=== PATIENT | male | born 1950 | race Caucasian/White ===

== ENCOUNTER → 2018-08-07 10:16 | Outpatient (CLI) | payer MEDICARE, SELFPAY ==
[2018-08-07 12:37] LABS: Absolute Lymphocyte Count 1.44 X10^3/ul (0.83-4.51); Absolute Neutrophil Count 2.7 X10^3/uL (2.0-7.7); Basophil# 0.05 X10^3/uL; Eosinophil# 0.26 X10^3/uL; Eosinophils% 5.1 % (0-5); Hematocrit 39.2 % (40-54); Hemoglobin 12.6 g/dl (13.0-16.5); Lymphocyte # 1.44 X10^3/ul (4.0); Lymphocyte % 28.1 % (19-41); Mean Corp Hgb Conc 32.1 g/gl (32-36); Mean Corpuscular Hgb 30.8 pg (27.0-32.0); Mean Corpuscular Volume 95.8 fL (80-94); Mean Platelet Vol. 10.5 fl (6.2-12.0); Monocyte# 0.63 X10^3/uL; Monocyte% 12.3 % (0-10); Neutrophil # 2.74 X10^3/uL (2.7-7.7); Neutrophil % 53.3 % (47-70); Platelet Count 299 K/mm3 (150-450); RBC Distribution Width CV 13.7 % (11.6-14.6); RBC Distribution Width SD 47.8 fl (35.1-43.9); Red Blood Count 4.09 M/mm3 (4.6-6.2); White Blood Count 5.1 K/mm3 (4.4-11.0)
[2018-08-07 12:38] LABS: POSITIVE COUNT NO; POSITIVE DIFFERENTIAL NO; POSITIVE MORPHOLOGY NO
[2018-08-07 12:56] LABS: ALB/GLOB Ratio 0.9 RATIO (0.9-2.4); AST(SGOT) 22 U/L (15-37); Alanine Aminotransfer ALT/SGPT 26 U/L (16-61); Albumin, Serum 3.6 g/dL (3.2-5.0); Alkaline Phosphatase 84 U/L (45-117); Anion Gap 6 (5-15); BUN 15 mg/dL (7-18); BUN/Creat Ratio 11.6 RATIO (10-20); Calcium,Total 9.3 mg/dL (8.5-10.1); Chloride 104 mmol/L (98-107); Cholesterol 187 mg/dL (200); Creatinine, Serum 1.29 mg/dL (0.70-1.30); EST Glomerular Filtration Rate 59 mL/min (>60); Est Glom Filt Rate - Afr Amer 71 mL/min (>60); Globulin 3.8 g/dL (2.2-4.2); Glucose 89 mg/dL (74-106); High Density Lipoprotein 91 mg/dL; PSA,Total - Annual Screen 0.29 ng/mL (0.00-4.00); Potassium 5.1 mmol/L (3.5-5.1); Protein, Total 7.4 g/dL (6.4-8.2); Sodium Level 139 mmol/L (136-145); Thyroid Stim Hormone (TSH) 1.86 uIU/mL (0.358-3.74); Triglycerides 68 mg/dL; Very Low Density Lipoprotein 14 mg/dL (5-40)
== END ==
PROVIDERS: Family Provider Internal Medicine; PCP Internal Medicine; Referring Provider Internal Medicine; Visit Provider Internal Medicine
DX: I10 Essential (primary) hypertension (principal); E78.5 Hyperlipidemia, unspecified; Z12.5 Encounter for screening for malignant neoplasm of prostate
CPT/HCPCS: 36415; 80053; 80061; 84153; 84443; 85025; G0103

== ENCOUNTER → 2019-01-31 08:37 | Outpatient (CLI) | payer MEDICARE, SELFPAY ==
[2019-01-31 10:39] LABS: ALB/GLOB Ratio 0.9 RATIO (0.9-2.4); AST(SGOT) 24 U/L (15-37); Alanine Aminotransfer ALT/SGPT 44 U/L (16-61); Albumin, Serum 3.7 g/dL (3.2-5.0); Alkaline Phosphatase 83 U/L (45-117); Anion Gap 4 (5-15); BUN 17 mg/dL (7-18); BUN/Creat Ratio 13.7 RATIO (10-20); Calcium,Total 8.9 mg/dL (8.5-10.1); Chloride 104 mmol/L (98-107); Cholesterol 213 mg/dL (200); Creatinine, Serum 1.24 mg/dL (0.70-1.30); EST Glomerular Filtration Rate 62 mL/min (>60); Est Glom Filt Rate - Afr Amer 75 mL/min (>60); Globulin 4.3 g/dL (2.2-4.2); Glucose 94 mg/dL (74-106); High Density Lipoprotein 79 mg/dL; Potassium 4.1 mmol/L (3.5-5.1); Sodium Level 139 mmol/L (136-145); Triglycerides 101 mg/dL; Very Low Density Lipoprotein 20 mg/dL (5-40)
[2019-01-31 10:41] LABS: Absolute Lymphocyte Count 1.72 X10^3/uL (0.83-4.51); Absolute Neutrophil Count 3.3 X10^3/uL (2.0-7.7); Basophil# 0.07 X10^3/uL; Basophil% 1.1 % (0-1); Eosinophil# 0.46 X10^3/uL; Eosinophils% 7.3 % (0-5); Hematocrit 42.4 % (40-54); Hemoglobin 13.4 g/dL (13.0-16.5); Lymphocyte # 1.72 X10^3/ul (4.0); Lymphocyte % 27.5 % (19-41); Mean Corp Hgb Conc 31.6 g/dL (32-36); Mean Corpuscular Hgb 31.6 pg (27.0-32.0); Mean Platelet Vol. 10.6 fl (6.2-12.0); Monocyte# 0.69 X10^3/uL; NRBC Flagged by Analyzer 0 % (0-5); Neutrophil # 3.29 X10^3/uL (2.7-7.7); Neutrophil % 52.6 % (47-70); Platelet Count 287 K/mm3 (150-450); RBC Distribution Width CV 13.6 % (11.6-14.6); RBC Distribution Width SD 50.4 fl (35.1-43.9); Red Blood Count 4.24 M/mm3 (4.6-6.2); White Blood Count 6.3 K/mm3 (4.4-11.0)
== END ==
PROVIDERS: Family Provider Internal Medicine; PCP Internal Medicine; Referring Provider Internal Medicine; Visit Provider Internal Medicine
DX: I10 Essential (primary) hypertension (principal); E78.5 Hyperlipidemia, unspecified
CPT/HCPCS: 36415; 80053; 80061; 85025

== ENCOUNTER → 2019-08-04 09:51 | Outpatient (CLI) | payer MEDICARE, SELFPAY ==
[2019-08-04 12:26] LABS: ALB/GLOB Ratio 0.9 RATIO (0.9-2.4); AST(SGOT) 24 U/L (15-37); Alanine Aminotransfer ALT/SGPT 32 U/L (16-61); Albumin, Serum 3.6 g/dL (3.2-5.0); Alkaline Phosphatase 73 U/L (45-117); Anion Gap 3 (5-15); BUN 16 mg/dL (7-18); Calcium,Total 9.5 mg/dL (8.5-10.1); Chloride 104 mmol/L (98-107); Cholesterol 192 mg/dL (200); Creatinine, Serum 1.33 mg/dL (0.70-1.30); EST Glomerular Filtration Rate 57 mL/min (>60); Est Glom Filt Rate - Afr Amer 69 mL/min (>60); Globulin 4.2 g/dL (2.2-4.2); Glucose 75 mg/dL (74-106); High Density Lipoprotein 70 mg/dL; Potassium 4.3 mmol/L (3.5-5.1); Protein, Total 7.8 g/dL (6.4-8.2); Sodium Level 137 mmol/L (136-145); Thyroid Stim Hormone (TSH) 0.78 uIU/mL (0.358-3.74); Triglycerides 121 mg/dL; Very Low Density Lipoprotein 24 mg/dL (5-40)
== END ==
PROVIDERS: PCP Internal Medicine; Referring Provider Internal Medicine; Visit Provider Internal Medicine
DX: M25.552 Pain in left hip (principal); I10 Essential (primary) hypertension; E78.5 Hyperlipidemia, unspecified; Z13.31 Encounter for screening for depression; Z23 Encounter for immunization
CPT/HCPCS: 36415; 80053; 80061; 84443

== ENCOUNTER → 2020-06-04 11:14 | Outpatient (CLI) | payer MEDICARE, SELFPAY ==
[2020-06-04 15:14] LABS: Absolute Lymphocyte Count 1.18 X10^3/uL (0.83-4.51); Absolute Neutrophil Count 4.2 X10^3/uL (2.0-7.7); Basophil# 0.05 X10^3/uL; Basophil% 0.8 % (0-1); Eosinophil# 0.38 X10^3/uL; Eosinophils% 5.9 % (0-5); Hematocrit 40.5 % (40-54); Hemoglobin 12.3 g/dL (13.0-16.5); Lymphocyte # 1.18 X10^3/ul (4.0); Lymphocyte % 18.2 % (19-41); Mean Corp Hgb Conc 30.4 g/dL (32-36); Mean Corpuscular Hgb 30.7 pg (27.0-32.0); Mean Platelet Vol. 10.5 fl (6.2-12.0); Monocyte# 0.65 X10^3/uL; NRBC Flagged by Analyzer 0 % (0-5); Neutrophil # 4.21 X10^3/uL (2.7-7.7); Neutrophil % 64.8 % (47-70); Platelet Count 303 K/mm3 (150-450); RBC Distribution Width CV 13.4 % (11.6-14.6); Red Blood Count 4.01 M/mm3 (4.6-6.2); White Blood Count 6.5 K/mm3 (4.4-11.0)
[2020-06-04 15:54] LABS: ALB/GLOB Ratio 0.8 RATIO (0.9-2.4); AST(SGOT) 20 U/L (15-37); Alanine Aminotransfer ALT/SGPT 31 U/L (16-61); Albumin, Serum 3.6 g/dL (3.2-5.0); Alkaline Phosphatase 73 U/L (45-117); Anion Gap 5 (5-15); BUN 14 mg/dL (7-18); CPK Total, Creatine Kinase 63 U/L (39-308); Calcium,Total 9.3 mg/dL (8.5-10.1); Chloride 105 mmol/L (98-107); Cholesterol 187 mg/dL (200); Creatinine, Serum 1.56 mg/dL (0.70-1.30); EST Glomerular Filtration Rate 47 mL/min (>60); Est Glom Filt Rate - Afr Amer 57 mL/min (>60); Globulin 4.4 g/dL (2.2-4.2); Glucose 86 mg/dL (74-106); High Density Lipoprotein 83 mg/dL; PSA,Total - Annual Screen 0.33 ng/mL (0.00-4.00); Potassium 4.1 mmol/L (3.5-5.1); Sodium Level 138 mmol/L (136-145); Thyroid Stim Hormone (TSH) 1.32 uIU/mL (0.358-3.74); Triglycerides 79 mg/dL; Very Low Density Lipoprotein 16 mg/dL (5-40)
== END ==
PROVIDERS: PCP Internal Medicine; Referring Provider Internal Medicine; Visit Provider Internal Medicine
DX: R79.89 Other specified abnormal findings of blood chemistry (principal); I10 Essential (primary) hypertension; E78.5 Hyperlipidemia, unspecified; Z12.5 Encounter for screening for malignant neoplasm of prostate
CPT/HCPCS: 36415; 80053; 80061; 82550; 84153; 84443; 85025; G0103

== ENCOUNTER → 2020-07-22 14:42 | Outpatient (CLI) | payer MEDICARE, SELFPAY ==
[2020-07-22 17:48] LABS: Absolute Lymphocyte Count 1.88 X10^3/uL (0.83-4.51); Basophil# 0.08 X10^3/uL; Eosinophils% 3.7 % (0-5); Hematocrit 39.6 % (40-54); Hemoglobin 12.9 g/dL (13.0-16.5); Lymphocyte # 1.88 X10^3/ul (4.0); Lymphocyte % 23.2 % (19-41); Mean Corp Hgb Conc 32.6 g/dL (32-36); Mean Corpuscular Hgb 32.2 pg (27.0-32.0); Mean Corpuscular Volume 98.8 fL (80-94); Mean Platelet Vol. 10.4 fl (6.2-12.0); Monocyte# 0.83 X10^3/uL; Monocyte% 10.3 % (0-10); NRBC Flagged by Analyzer 0 % (0-5); Neutrophil # 4.96 X10^3/uL (2.7-7.7); Neutrophil % 61.3 % (47-70); Platelet Count 322 K/mm3 (150-450); RBC Distribution Width CV 13.5 % (11.6-14.6); RBC Distribution Width SD 48.6 fl (35.1-43.9); Red Blood Count 4.01 M/mm3 (4.6-6.2); Reticulocyte Count 1.21 % (0.5-1.5); White Blood Count 8.1 K/mm3 (4.4-11.0)
[2020-07-22 18:23] LABS: Vitamin B12 509 pg/mL (211-911)
[2020-07-22 18:43] LABS: Anion Gap 6 (5-15); BUN 27 mg/dL (7-18); BUN/Creat Ratio 13.9 RATIO (10-20); Calcium,Total 9.5 mg/dL (8.5-10.1); Chloride 101 mmol/L (98-107); Creatinine, Serum 1.94 mg/dL (0.70-1.30); EST Glomerular Filtration Rate 37 mL/min (>60); Est Glom Filt Rate - Afr Amer 44 mL/min (>60); Ferritin 256 ng/mL (26-388); Glucose 79 mg/dL (74-106); Iron 113 ug/dL (65-175); Iron Binding Capacity,Total 305 ug/dL (250-450); Potassium 5.2 mmol/L (3.5-5.1); Sodium Level 134 mmol/L (136-145)
== END ==
PROVIDERS: PCP Internal Medicine; Referring Provider Internal Medicine; Visit Provider Internal Medicine
DX: N18.30 Chronic kidney disease, stage 3 unspecified (principal); D64.9 Anemia, unspecified
CPT/HCPCS: 80048; 82607; 82728; 82746; 83540; 83550; 85025; 85045

== ENCOUNTER → 2020-09-02 12:18 | Outpatient (CLI) | payer MEDICARE, SELFPAY ==
--- NOTE | 2020-09-02 12:29 | US_ITS ---
STUDY: RENAL ULTRASOUND - COMPLETE REASON FOR EXAM: Male, 70 years old. Elevated BUN/creatinine TECHNIQUE: Ultrasound evaluation of the kidneys was performed with real-time and static schuster-scale imaging. COMPARISON: None. FINDINGS: RIGHT KIDNEY: Normal location of the right kidney, which is normal in size. The right kidney measures 10.1 x 4.6 x 4.8 cm. There is a normal cortex of the right kidney. The renal cortex measures 1.5 cm. There is a simple 1.9 cm cyst. There are no right renal calculi. There is no right hydronephrosis. DISTAL RIGHT URETER: There is non-visualization of the distal right ureter. There is no demonstrated right ureterovesical junction calculus. There is a visualized right ureteral jet. LEFT KIDNEY: Normal location of the left kidney, which is normal in size. The left kidney measures 10.3 x 4.6 x 5.2 cm. There is a normal cortex of the left kidney. The renal cortex measures 1.3 cm. There is no left renal mass or cyst. There are no left renal calculi. There is no left hydronephrosis. DISTAL LEFT URETER: There is non-visualization of the distal left ureter. There is no demonstrated left ureterovesical junction calculus. There is a visualized left ureteral jet. AORTA: There is no elongation or tortuosity of the abdominal aorta. I.V.C.: The IVC is patent. BLADDER: The bladder is sonographically normal US/Kidney and Bladder IMPRESSION: No suspicious sonographic findings, simple right renal cyst, no specific follow-up needed Electronically Signed: Justo Meyers MD at 13:22 EDT , Service support ,
== END ==
PROVIDERS: PCP Internal Medicine; Referring Provider Student in an Organized Health Care Education/Training Program; Visit Provider Student in an Organized Health Care Education/Training Program
DX: I12.9 Hypertensive chronic kidney disease with stage 1 through stage 4 chronic kidney disease, or unspecified chronic kidney disease (principal); N18.32 Chronic kidney disease, stage 3b; D63.1 Anemia in chronic kidney disease; E83.39 Other disorders of phosphorus metabolism
CPT/HCPCS: 36415; 76770; 80048; 81002; 82306; 82570; 82728; 83540; 83550; 83970; 84156; 84550; 85027

== ENCOUNTER → 2020-09-02 13:29 | Outpatient (CLI) | payer MEDICARE, SELFPAY ==
[2020-09-02 15:02] LABS: Hematocrit 36.1 % (40-54); Hemoglobin 11.6 g/dL (13.0-16.5); Mean Corp Hgb Conc 32.1 g/dL (32-36); Mean Corpuscular Hgb 31.2 pg (27.0-32.0); Mean Platelet Vol. 10.3 fl (6.2-12.0); Platelet Count 307 K/mm3 (150-450); RBC Distribution Width CV 13.3 % (11.6-14.6); RBC Distribution Width SD 47.8 fl (35.1-43.9); Red Blood Count 3.72 M/mm3 (4.6-6.2); White Blood Count 6.7 K/mm3 (4.4-11.0)
[2020-09-02 15:08] LABS: Color, Urine Yellow (Yellow); Glucose, Dipstick Normal (Normal); Ketone-Dipstick Negative (Negative); Leukocyte Esterase-Dipstick Negative /ul (Negative); Nitrite-Dipstick Negative (Negative); Occult Blood-Urine Negative /ul (Negative); Protein-Dipstick Negative (Negative); Urine Bilirubin Dipstick Negative (Negative); Urine Clarity Clear (Clear); Urine Urobilinogen Normal (Normal); Urine pH 6.5 (5.0 - 8.0)
[2020-09-02 15:25] LABS: PTHIN 79.4 pg/mL (18.4-80.1)
[2020-09-02 15:26] LABS: Vitamin D,25 Hydroxy 21.5 ng/mL
[2020-09-02 15:36] LABS: Anion Gap 7 (5-15); BUN 16 mg/dL (7-18); BUN/Creat Ratio 10.8 RATIO (10-20); Calcium,Total 8.8 mg/dL (8.5-10.1); Chloride 103 mmol/L (98-107); Creatinine, Serum 1.48 mg/dL (0.70-1.30); EST Glomerular Filtration Rate 50 mL/min (>60); Est Glom Filt Rate - Afr Amer 61 mL/min (>60); Ferritin 203 ng/mL (26-388); Glucose 95 mg/dL (74-106); Iron 79 ug/dL (65-175); Iron Binding Capacity,Total 271 ug/dL (250-450); Potassium 4.6 mmol/L (3.5-5.1); Sodium Level 133 mmol/L (136-145); Uric Acid 3.9 mg/dL (3.5-7.2)
[2020-09-02 16:06] LABS: Protein, Urine (Random) < 6.0 mg/dL (<11.9)
== END ==
PROVIDERS: PCP Internal Medicine; Visit Provider Student in an Organized Health Care Education/Training Program
DX: I12.9 Hypertensive chronic kidney disease with stage 1 through stage 4 chronic kidney disease, or unspecified chronic kidney disease (principal); N18.32 Chronic kidney disease, stage 3b; D63.1 Anemia in chronic kidney disease; E83.39 Other disorders of phosphorus metabolism
CPT/HCPCS: 36415; 80048; 81002; 82306; 82570; 82728; 83540; 83550; 83970; 84156; 84550; 85027

== ENCOUNTER → 2020-10-04 14:01 | Outpatient (CLI) | payer MEDICARE, SELFPAY ==
--- NOTE | 2020-10-04 15:01 | RAD_ITS ---
STUDY: X-RAY - CERVICAL SPINE REASON FOR EXAM: Male, 70 years old. Neck pain and headache TECHNIQUE: 4 view(s) of the cervical spine were obtained. COMPARISON: None FINDINGS: Normal anterior atlantoaxial articulation. Normal odontoid process. There is straightening of the normal cervical lordosis. There is multi-level endplate spondylosis. There is multi-level degenerative disc disease with multilevel disc space narrowing. The soft tissue structures are unremarkable. There is no demonstrated fracture of the cervical spine. RAD/Cerv Spine 2 or 3 Views IMPRESSION: Multilevel degenerative changes, no acute findings Electronically Signed: Justo Meyers MD at 16:44 EDT , Service support ,
== END ==
LOC: RAD.FUTURE 14:03 → MTRAD 14:58
PROVIDERS: PCP Internal Medicine; Referring Provider Orthopaedic Surgery; Visit Provider Orthopaedic Surgery
DX: M54.2 Cervicalgia (principal)
CPT/HCPCS: 72040

== ENCOUNTER → 2021-08-02 | Outpatient (CLI) | payer MEDICARE, SELFPAY ==
[2021-08-02 15:10] LABS: Hematocrit 37.3 % (40-54); Hemoglobin 11.7 g/dL (13.0-16.5); Mean Corp Hgb Conc 31.4 g/dL (32-36); Mean Corpuscular Hgb 30.5 pg (27.0-32.0); Mean Corpuscular Volume 97.1 fL (80-94); Mean Platelet Vol. 10.7 fl (6.2-12.0); Platelet Count 361 K/mm3 (150-450); RBC Distribution Width CV 12.9 % (11.6-14.6); RBC Distribution Width SD 46.2 fl (35.1-43.9); Red Blood Count 3.84 M/mm3 (4.6-6.2); White Blood Count 8.5 K/mm3 (4.4-11.0)
[2021-08-02 15:34] LABS: Vitamin D,25 Hydroxy 16.8 ng/mL
[2021-08-02 15:54] LABS: ALB/GLOB Ratio 0.8 RATIO (0.9-2.4); AST(SGOT) 19 U/L (15-37); Alanine Aminotransfer ALT/SGPT 34 U/L (16-61); Albumin, Serum 3.5 g/dL (3.2-5.0); Alkaline Phosphatase 74 U/L (45-117); Anion Gap 8 (5-15); BUN 18 mg/dL (7-18); Calcium,Total 9.2 mg/dL (8.5-10.1); Chloride 108 mmol/L (98-107); Cholesterol 169 mg/dL (200); Creatinine, Serum 1.64 mg/dL (0.70-1.30); EST Glomerular Filtration Rate 44 mL/min (>60); Est Glom Filt Rate - Afr Amer 54 mL/min (>60); Globulin 4.4 g/dL (2.2-4.2); Glucose 92 mg/dL (74-106); High Density Lipoprotein 55 mg/dL; PSA,Total - Annual Screen 0.37 ng/mL (0.00-4.00); Potassium 4.2 mmol/L (3.5-5.1); Protein, Total 7.9 g/dL (6.4-8.2); Sodium Level 140 mmol/L (136-145); Thyroid Stim Hormone (TSH) 0.79 uIU/mL (0.358-3.74); Triglycerides 152 mg/dL; Very Low Density Lipoprotein 30 mg/dL (5-40)
== END | disposition home or self-care (01) ==
PROVIDERS: PCP Internal Medicine; Referring Provider Internal Medicine; Visit Provider Internal Medicine
DX: E55.9 Vitamin D deficiency, unspecified (principal); N18.31 Chronic kidney disease, stage 3a; I12.9 Hypertensive chronic kidney disease with stage 1 through stage 4 chronic kidney disease, or unspecified chronic kidney disease; E78.5 Hyperlipidemia, unspecified; Z12.5 Encounter for screening for malignant neoplasm of prostate
CPT/HCPCS: 36415; 80053; 80061; 82306; 84153; 84443; 85027; G0103

== ENCOUNTER → 2023-11-20 | Outpatient (CLI) | payer MEDICARE, SELFPAY ==
--- NOTE | 2023-11-20 10:23 | RAD_ITS ---
STUDY: X-RAY - UNILATERAL RIBS ( RIGHT ) WITH CHEST REASON FOR EXAM: Male, 73 years old. CONTUSION POST FALL TECHNIQUE - RIBS: 4 view(s) of the ribs. TECHNIQUE - CHEST: Single PA view of the chest. COMPARISON: None. FINDINGS - RIBS: Nondisplaced fractures involving the anterior lateral aspects of the right eighth ninth and 10th ribs anterolaterally. FINDINGS - CHEST: The lungs are clear and expanded. There is no demonstrated pleural abnormality. Normal size heart. Normal mediastinum and kimani. Normal visualized pulmonary arteries. There is atherosclerotic calcification of the aortic arch with tortuosity. There are diffuse degenerative changes of the visualized thoracic spine. There are nondisplaced fractures of the right eighth ninth and 10th ribs anterolaterally. Aortic stent is seen as well as stenting of the common iliac arteries bilaterally. RAD/Ribs Uni Min 3V w/PA Chest IMPRESSION: RIBS: Nondisplaced fractures of the right eighth ninth and 10th ribs anterolaterally. CHEST: Normal x-ray examination of the chest. Electronically Signed: Joel Duke MD at 11:27 EDT ,
== END | disposition home or self-care (01) ==
PROVIDERS: PCP Internal Medicine; Referring Provider Internal Medicine; Visit Provider Internal Medicine
DX: S20.219A Contusion of unspecified front wall of thorax, initial encounter (principal); Z91.81 History of falling
CPT/HCPCS: 71101

== ENCOUNTER → 2024-10-08 | Outpatient (CLI) | payer MEDICARE, SELFPAY ==
--- OUTSIDE RECORDS SUMMARY | 2024-10-08 05:46 | XMS RPT_ITS | CCD ---
Author Organization [facility] Care Team Providers Care Certification Officer Name Role Phone DR LIVIA KEYES MD Primary Care Physician [phone] WILFRED ALONSO MD Primary Care Unava ilable WILFRED ALONSO MD Attending Unava ilable LIVIA KEYES MD Consulting Unavailable WILFRED ALONSO MD Admitting Unava ilable PROVIDER, UNKNOWN Consulting Unavailable PROVIDER, UNKNOWN Consulting Unavailable PROVIDER, UNKNOWN Consulting Unavailable LIVIA KEYES MD Primary Care Unavailable LIVIA KEYES MD Consulting Unavailable LIVIA KEYES MD Attending Unavailable LIVIA KEYES MD Admitting Unavailable PROVIDER, UNKNOWN Consulting Unavailable PROVIDER, UNKNOWN Consulting Unavailable PROVIDER, UNKNOWN Consulting Unavailable LIVIA KEYES MD Consulting Unavailable LIVIA KEYES MD Attending Unavailable LIVIA KEYES MD Admitting Unavailable LIVIA KEYSE MD Primary Care Unavailable PROVIDER, UNKNOWN Consulting Unavailable PROVIDER, UNKNOWN Consulting Unavailable PROVIDER, UNKNOWN Consulting Unavailable LIVIA KEYES MD Primary Care Unavailable LIVIA KEYES MD Attending Unavailable LIVIA KEYES MD Admitting Unavailable LIVIA KEYES MD Consulting Unavailable PROVIDER, UNKNOWN Consulting Unavailable PROVIDER, UNKNOWN Consulting Unavailable PROVIDER, UNKNOWN Consulting Unavailable LIVIA KEYES MD Primary Care Unavailable LATLIVIA GOODMAN MD Consulting Unavailable LIVIA KEYES MD Attending Unavailable LIVIA KEYES MD Admitting Unavailable PROVIDER, UNKNOWN Consulting Unavailable PROVIDER, UNKNOWN Consulting Unavailable PROVIDER, UNKNOWN Consulting Unavailable LIVIA KEYES MD Consulting Unavailable LIVIA KEYES MD Attending Unavailable LATLIVIA GOODMAN MD Admitting Unavailable LIVIA KEYES MD Primary Care Unavailable PROVIDER, UNKNOWN Consulting Unavailable PROVIDER, UNKNOWN Consulting Unavailable PROVIDER, UNKNOWN Consulting Unavailable LIVIA KEYES MD Primary Care Unavailable LATLIVIA GOODMAN MD Consulting Unavailable LIVIA KEYES MD Attending Unavailable LIVIA KEYES MD Admitting Unavailable PROVIDER, UNKNOWN Consulting Unavailable PROVIDER, UNKNOWN Consulting Unavailable PROVIDER, UNKNOWN Consulting Unavailable Wali MONTESINOS, Dr. Wilkinson Primary Care Provider Dr. Livia Keyes MD Referring Provider Blanca Greenberg Attending Provider [phone] Livia Keyes Primary Care Unavailable Wali, Livia Referring Unavailable Blanca Valentin Attending Unavailable Livia Keyes Primary Care Unavailable Livia Keyes Attending Unavailable Wali, Livia Referring Unavailable Blanca Valentin Attending Unavailable Blanca Valentin Referring Unavailable Wali, Livia Primary Care Unavailable Medications Current Medications Medication Drug Class(es) Dates Sig (Normalized) Sig (Original) acetaminophen 325 mg / HYDROcodone bitartrate 5 mg oral tablet (2 sources) Opioid Agonist Start: 09-16-2024 Hydrocodone-Acetam inophen 5-325 mg tablet Active 1 {tbl} PO Q4H as needed September 16, 2024 12:00am Start: 11-16-2020 [place] 325- 5 m g oral tablet Dose = 1 tab(s), Oral, q4h, PRN Pain, scale 7-10, 0 Refill(s), 86.1 Start Date: 11/16/20 Status: Ordered aspirin 81 mg delayed release oral tablet (1 source) Platelet Aggregation Inhibitor, Nonsteroidal Anti-inflammatory Drug Start: 09-16-2024 take 1 tablet by mouth once daily Aspirin 81 mg tablet,delayed release (DR/EC) Active 81 mg PO daily September 16, 2024 12:00am cyclobenzaprine hydrochloride 10 mg oral tablet (1 source) Muscle Relaxant Start: 09-16-2024 take 1 tablet by mouth at bedtime Cyclobenzaprine 10 mg tablet Active 10 mg PO BEDTIME September 16, 2024 12:00am folic acid 1 mg oral tablet (1 source) Start: 09-16-2024 take 1 tablet by mouth every other day Folic Acid 1 mg tablet Active 1 mg PO .QOD September 16, 2024 12:00am gabapentin 800 mg oral tablet (2 sources) Anti-epileptic Agent Start: 09-16-2024 take 1 tablet by mouth three times daily Gabapentin (Neurontin) 800 mg tablet Active 800 mg PO THREE TIMES A DAY September 16, 2024 12:00am Start: 10-11-2020 gabapentin 800 mg oral tablet Dose : 800 mg = 1 tab(s), Oral, TID, 86.5 Start Date: 10/11/20 Status: Ordered lisinopril 10 mg oral tablet (1 source) Angiotensin Converting Enzyme Inhibitor Start: 10-11-2020 lisinopril 10 mg oral tablet Dose : 10 mg = 1 tab(s), Oral, qAM Start Date: 10/11/20 Status: Ordered 24 hr metoprolol succinate 25 mg extended release oral tablet (1 source) beta-Adrenergic Hiral Start: 09-16-2024 take 1 tablet by mouth once daily Metoprolol Succinate 25 mg tablet extended release 24 hr Active 25 mg PO daily September 16, 2024 12:00am pantoprazole 40 mg delayed release oral tablet (2 sources) Proton Pump Inhibitor Start: 09-16-2024 take 1 tablet by mouth once daily Pantoprazole (Protonix) 40 mg tablet,delayed release (DR/EC) Active 40 mg PO daily September 16, 2024 12:00am Start: 10-11-2020 pantoprazole 4 0 mg oral enteric coated tablet Dose : 40 mg = 1 tab(s), Oral, qAM Start Date: 10/11/20 Status: Ordered rosuvastatin calcium 40 mg oral tablet (2 sources) HMG-CoA Reductase Inhibitor Start: 09-16-2024 take 1 tablet by mouth once daily Rosuvastatin 40 mg tablet Active 40 mg PO daily September 16, 2024 12:00am Start: 10-11-2020 rosuvastatin 4 0 mg oral tablet Dose : 40 mg = 1 tab(s), Oral, qPM Start Date: 10/11/20 Status: Ordered sertraline 50 mg oral tablet (2 sources) Serotonin Reuptake Inhibitor Start: 09-16-2024 take 1 tablet by mouth once daily Sertraline 50 mg tablet Active 50 mg PO daily September 16, 2024 12:00am Start: 10-11-2020 sertraline 100 mg oral tablet Dose : 100 mg = 1 tab(s), Oral, qAM Start Date: 10/11/20 Status: Ordered ubidecarenone 200 mg oral capsule (1 source) Start: 09-16-2024 take 10 capsules by mouth once daily Coenzyme Q10 200 mg capsule Active 200 mg PO daily September 16, 2024 12:00am zolpidem tartrate 10 mg oral tablet (2 sources) gamma-Aminobuty brigitte Acid-ergic Agonist Start: 09-16-2024 take 1 tablet by mouth at bedtime as needed Zolpidem 10 mg tablet Active 10 mg PO AT BEDTIME as needed September 16, 2024 12:00am Start: 10-11-2020 zolpidem 10 mg oral tablet Dose : 10 mg = 1 tab(s), Oral, qHS, PRN as needed for sleep, 86.5 Start Date: 10/11/20 Status: Ordered Problems Active Problems Problem Classification Problem Date Documented Date Episodic/Chronic Chronic kidney disease (2 sources) Chronic kidney disease; Translations: [Chronic kidney disease, stage 3a] Onset: 01-07-2024 Deficiency and other anemia (2 sources) Folate deficiency anemia, unspecified; Translations: [Folate deficiency anemia, unspecified] Onset: 03-20-2024 Episodic Deficiency and other anemia (1 source) Anemia, unspecified; Translations: [Anemia, unspecified] Onset: 08-05-2024 Episodic Disorders of lipid metabolism (2 sources) Hypercholesterolemia; Translations: [Hyperlipidemia, unspecified] Onset: 08-05-2024 11-14-2013 Chronic Essential hypertension (1 source) Hypertensive disorder 11-14-2013 Chronic Nutritional deficiencies (1 source) Vitamin D deficiency, unspecified; Translations: [Vitamin D deficiency, unspecified] Onset: 08-05-2024 Chronic Other circulatory disease (2 sources) Disorder of carotid artery; Translations: [Disorder of arteries and arterioles, unspecified] 09-17-2024 Chronic Other circulatory disease (2 sources) Personal history of other diseases of the circulatory system; Translations: [Personal history of other diseases of the circulatory system] Onset: 09-17-2024 Episodic Other endocrine disorders (1 source) Secondary hyperparathyroidism, not elsewhere classified; Translations: [Secondary hyperparathyroidism, not elsewhere classified] Onset: 08-05-2024 Chronic Other screening for suspected conditions (not mental disorders or infectious disease) (1 source) Encounter for screening for malignant neoplasm of prostate; Translations: [Encounter for screening for malignant neoplasm of prostate] Onset: 08-04-2024 Episodic Residual codes; unclassified (2 sources) History of cardiovascular surgery; Translations: [Other specified postprocedural states] 09-17-2024 Episodic Residual codes; unclassified (2 sources) Other specified postprocedural states; Translations: [Other specified postprocedural states] Onset: 09-17-2024 Episodic Spondylosis; intervertebral disc disorders; other back problems (1 source) Prolapsed cervical intervertebral disc 10-26-2020 Chronic Spondylosis; intervertebral disc disorders; other back problems (1 source) Spinal stenosis in cervical region 10-22-2020 Episodic Past or Other Problems Problem Classification Problem Date Documented Da te Episodic/Chronic Other injuries and conditions due to external causes (1 source) History of falling; Translations: [History of falling] Onset: 12-24-2023 Episodic Results Test Name Value Interpretation Reference Range Facility MR/BMSLidia 09-17-2024 MR/BMS.BVS [facility] [address] [place] [address]. [address] [place] [address] OFFICE VISIT Date of Service: 09/17/24 MR#: [id number] Acct: [id number] Name: FRANCESSAVANAH D Rep #: [id number] : 1950 Provider: KELLY Houston Age/Sex: 74/M Location: [facility] [place] Status: Signed Intake Vital Signs 09/17/24 14:51 Height 5 ft 9 in Weight: 199 lb BMI 29.3 BP 135/66 H Blood Pressure Location Lt brachial Position Sitting Respiration 18 Pulse 74 Pulse Source Monitor Temp 98 F Temp Source Temporal Pulse Oximetry (%) 96 Oxygen Delivery Method room air Intake Visit Reasons: AAA Is patient in pain?: Yes Allergies No Known Allergies Allergy (Verified 09/17/24 14:45) Medications ???Medication ???Instructions ???Recorded ???Confirmed ???Type aspirin 81 mg tablet,delayed 81 mg PO QDAY 09/16/24 09/17/24 Hi story release coenzyme Q10 200 mg capsule 200 mg PO QDAY 09/16/24 09/17/24 H istory cyclobenzaprine 10 mg tablet 10 mg PO HS 09/16/24 09/17/24 Hist ory folic acid 1 mg tablet 1 mg PO .QOD 09/16/24 09/17/24 His tory gabapentin 800 mg tablet 800 mg PO TID 09/16/24 09/17/24 Hi story (Neurontin) hydrocodone-acetaminop hen 5-325mg 1 tab PO Q4H PRN 09/16/24 5 History 5mg-325mg metoprolol succinate 25 mg 25 mg PO QDAY 09/16/24 09/17/24 Hi story tablet,extended release 24 hr pantoprazole 40 mg tablet,delayed 40 mg PO QDAY 09/16/24 09/17/24 H istory release (Protonix) rosuvastatin 40 mg tablet 40 mg PO QDAY 09/16/24 09/17/24 Hi story sertraline 50 mg tablet 50 mg PO QDAY 09/16/24 09/17/24 Hi story zolpidem 10 mg tablet 10 mg PO QHS PRN 09/16/24 09/17/24 History Have you fallen in the past year?: Yes PFSH Medical History (Updated 09/17/24 @ 15:15 by KELLY Houston) Neck fracture ( 2020) Family History (Updated 09/17/24 @ 14:48 by Sosa Flannery MA) Brother Myocardial infarction CAD (coronary artery disease) Heart disease Hypertension Father Myocardial infarction CAD (coronary artery disease) Heart disease Hypertension Mother CAD (coronary artery disease) Heart disease Hypertension Other Kidney disease Social History (Updated 09/17/24 @ 14:49 by Sosa Flannery MA) Smoking Status: Former smoker Smokeless tobacco user: chewing tobacco HPI HPI HPI: SAVANAH DANIELS, is a 74 M who presents to the office today for evaluation of AAA s/p prior EVAR as referred by his PCP Dr. Keyes. He had recent duplex at [facility] 08/13/2024 which reported complex appearing abdominal aortic aneurysm; turbulent flow noted within the portion of the aneurysm with color flow; 3.8 x 4.2 cm. He reports that he had EVAR around 2013 at [facility] in [place], cannot recall the surgeon. He thinks it was around 6 cm at the time of repair, his thinks it was around 7 cm. He reports it has been over 5 years since he has had vascular surgery follow-up. He denies any abdominal, back, flank, or chest pain that is new/different for him recently. He does have chronic back and neck pain. He also has a history of asymptomatic carotid artery disease, he had recent duplex at [facility] but I do not have this report available for review. He has not had any prior carotid interventions. He does not have any history of lower extremity revascularization. He denies any lower extremity claudication. He does have a history of coronary artery disease s/p PCI remotely and a history of moderate aortic valve stenosis. He does take ASA 81mg daily and rosuvastatin 40mg daily. ROS General General: Yes weight change and fatigue; No appetite, colon cancer, breast cancer or weakness HEENT HEENT: No difficulty swallowing, eye injury, eye surgery, swollen glands or hoarseness Endo Endocrine: No thyroid disease, diabetes mellitus, thyroid cancer, Hair loss, heat intolerance or cold intolerance Skin Skin: No rash or changing moles Musc Musculoskeletal: Yes back problems, arthritis and rheumatoid arthritis; No gout or joint pain Cardio Cardiovascular: Yes murmur, heart disease, atrial fibrillation, high blood pressure, heart attack and heart stent; No pacemaker, palpitations, shortness of breath with exertion or chest pain Psych Psychiatric: Yes depression and anxiety; No hearing voices Resp Respiratory: Yes shortness of breath, No sleep apnea, No cough, No COPD, No asthma, No emphysema and No wheezing Gastro Gastrointestinal: No abdominal pain, No nausea or vomiting, No diarrhea, No constipation, No blood in stool, No acid reflux, No hemorrhoids, No ulcers, No gallbladder problem and No black,tarry stools Aaron Hematologic: Yes blood thinners, No blood disorders, No bleeding, No anemia and No blood clots Neuro Neurologic: No system reviewed and no additional c (more content not included)... Normal [facility] CV CAROTID STUDY CV CAROTID STUDY [place] [id number] Patient: CARLA DANIELS Phone#: : 1950 Age: 74 Gender: M Pt. Type: Out Account: [id number] Location: [facility] Ordering: LIVIA KEYES Exam Date: 08/13/2024/8:44 Family Phys: Charge Code: [id number] Physician: Coles Order #: [id number] Dose#: PROCEDURE: CAROTID FLOW STUDY COMPARISON: None. INDICATIONS: CAROTID STENOSIS TECHNIQUE: Color duplex Doppler ultrasound and pulsed Doppler analysis were performed to evaluate the cervical carotid arteries and vertebral flow. All measurements for carotid artery narrowing or stenosis were obtained using the ipsilateral distal internal carotid artery as the reference value. [employer]: CHLOÉ OVALLE RVT RDCS PT HISTORY: Follow-up carotid stenosis RIGHT IMAGING FINDINGS: CCA: Mild heterogenous plaque is present. ICA: Moderate heterogenous plaque without hemodynamically significant stenosis. ECA: Moderate heterogenous plaque is present. Vertebral A: Antegrade flow Comments: Category: II. Less than 50% stenosis. ICA PSV less than 180cm/s. Plaque and/or intimal thickening present. LEFT IMAGING FINDINGS: CCA: Mild heterogenous plaque is present. ICA: Moderate heterogenous plaque without hemodynamically significant stenosis. ECA: Mild heterogenous plaque is present. Vertebral A: Antegrade flow. Comments: Category: II Less than 50% stenosis. ICA PSV less than 180cm/s. Plaque and/or intimal thickening present. RIGHT VELOCITY RECORDINGS Prox CCA: 118.06 cm/s Prox CCA EDV: 18.39 cm/s Mid CCA: 102.18 cm/s Mid CCA EDV: 15.04 cm/s Distal CCA: 92.11 cm/s Distal CCA EDV: 15.87 cm/s ECA: 165.54 cm/s ECA EDV: 8.09 cm/s Prox ICA: 157.55 cm/s Prox ICA EDV: 38.46 cm/s Continued Report - Page 2 of 2 Patient: CARLA DANIELS Phone#: : 1950 Age: 74 Gender: M Pt. Type: Out Account: [id number] Location: [facility] Ordering: LIVIA KEYES Exam Date: 08/13/2024/8:44 Family Phys: Charge Code: [id number] Physician: Coles Order #: [id number] Dose#: Mid ICA: 147.96 cm/s Mid ICA EDV: 29.39 cm/s Distal ICA: 117.54 cm/s Distal ICA EDV: 33.18 cm/s Vertebral Artery: 39.71 cm/s Vertebral Artery EDV: 7.16 cm/s Subclavian Artery: 159.86 cm/s LEFT VELOCITY RECORDINGS Prox CCA: 88.57 cm/s Prox CCA EDV: 15.15 cm/s Mid CCA: 102.18 cm/s Mid CCA EDV: 20.66 cm/s Distal CCA: 92.11 cm/s Distal CCA EDV: 19.62 cm/s ECA: 116.69 cm/s ECA EDV: 10.47 cm/s Prox ICA: 142.35 cm/s Prox ICA EDV: 30.66 cm/s Mid ICA: 112.02 cm/s Mid ICA EDV: 30.50 cm/s Distal ICA: 107.11 cm/s Distal ICA EDV: 30.87 cm/s Vertebral Artery: 42.50 cm/s Vertebral Artery EDV: 7.16 cm/s Subclavian Artery: 77.54 cm/s ICA/CCA ratio: Right: 1.54 Left: 1.39 CONCLUSION: 1. Bilateral moderate heterogeneous plaque. 2. No hemodynamically significant stenosis. Dictated by: Carlyn Hubbard MD on 08/13/2024 at 16:46 Approved by: Carlyn Hubbard MD on 08/13/2024 at 16:49 Normal [facility] AORTA 08-13-2024 [place] [address] Patient: CARLA DANIELS Phone#: : 1950 Age: 74 Gender: M Pt. Type: Out Account: [id number] Location: [facility] Ordering: LIVIA KEYES Exam Date: 08/13/2024/8:17 Family Phys: Charge Code: [id number] Physician: Coles Order #: [id number] Dose#: PROCEDURE: AORTA ULTRASOUND COMPARISON: None. INDICATIONS: Abdominal aortic aneurysm. TECHNIQUE: Ultrasound was performed of the abdominal aorta. FINDINGS: AORTA: Complex appearance of the mid abdominal aorta. Proximal aorta: 1.6 x 1.6 cm. Mid aorta: Complex aneurysm, measures 3.8 x 4.2 cm. Color signal is seen in the superficial portion of the aneurysm. There is turbulent flow within the portion of the aneurysm demonstrating flow. Distal aorta: 1.7 x 1.8 cm Right proximal iliac artery: 1.1 x 1.3 cm Left proximal iliac artery: 1.0 x 1.6 cm OTHER: Negative. CONCLUSION: 1. Complex appearing abdominal aortic aneurysm. Turbulent flow noted within the portion of the aneurysm with color flow. Recommend CT aorta with contrast for further characterization of the aneurysm. Dictated by: Carlyn Hubbard MD on 08/13/2024 at 15:24 Approved by: Carlyn Hubbard MD on 08/13/2024 at 15:34 Normal [facility] FERRITIN [CCL]on 08-05-2024 Ferritin [Mass/Vol] 173.0 ng/mL Normal 30.3-565.7 [facility] Comment on above: Result Comment: [facility] [address] [place] [address] Aleksander Romo III, M.D. [id number] Performed By: #### 2 26882 #### [place] [address] CBC + DIFFon 08-04-2024 Baso # 0.02 x10EE3/UL Normal 0.00 - 0.10 [facility] Comment on above: Performed By: #### 2 09889 #### [place] [address] Basophils/100 WBC (Bld) 0.3 % Normal 0.0 - 2.0 [facility] Comment on above: Performed By: #### 2 84475 #### [facility],[address] [place] [address] CBC + DIFF Normal [facility] Comment on above: Result Comment: CBC- COMPLETE BLOOD COUNT Performed By: #### 2 34278 #### [place] [address] EO # 0.42 x10EE3/UL Normal 0.00 - 0.50 [facility] Comment on above: Performed By: #### 2 56616 #### [place] [address] Eosinophils/100 WBC (Bld) 5.4 % Normal 0.0 - 7.0 [facility] Comment on above: Performed By: #### 2 87726 #### [facility],[address] [place], [place] [id number] Erythrocyte distribution width (RBC) [Ratio] 13.2 % Normal 12.0 - 15.6 [facility] Comment on above: Performed By: #### 2 06974 #### [facility],[address] [place] [address] Hematocrit (Bld) [Volume fraction] 36.5 % Low 40.0 - 52.0 [facility] Comment on above: Performed By: #### 2 25724 #### [facility],[address] [place] [address] Hemoglobin (Bld) [Mass/Vol] 12.4 g/dL Low 13.0 - 17.5 [facility] Comment on above: Performed By: #### 2 68543 #### [facility],[address] [place], [place] [id number] Lymph # 1.48 x10EE3/UL Normal 0.80 - 2.80 [facility] Comment on above: Performed By: #### 2 38705 #### [facility],[address] [place] [address] Lymphocytes/100 WBC (Bld) 19.1 % Low 20.0 - 45.0 [facility] Comment on above: Performed By: #### 2 09410 #### [facility],[address] [place] [address]25 MANUAL DIFF N/A Normal [facility] Comment on above: Performed By: #### 2 38981 #### [facility],[address] [place] [address] 01614 MCH (RBC) [Entitic mass] 33 pg Normal 27 - 33 [facility] Comment on above: Performed By: #### 2 50235 #### [facility],[address] [place] [address] 49678 MCHC 34 X10 3 Normal 32 - 36 [facility] Comment on above: Performed By: #### 2 18429 #### [facility],[address] [place] [address] 58475 MCV (RBC) [Entitic vol] 97 fL Normal 81 - 98 [facility] Comment on above: Performed By: #### 2 75104 #### [facility],[address] [place] [address] Kidder # 0.82 x10EE3/UL Normal 0.20 - 1.00 [facility] Comment on above: Performed By: #### 2 33933 #### [facility],[address] [place] [address] MONOS % 10.6 % High 0.0 - 10.0 [facility] Comment on above: Performed By: #### 2 59510 #### [facility],[address] [place] [address] Morphology Harinder (Bld) [Interp] N/A Normal [facility] Comment on above: Performed By: #### 2 28591 #### [facility],[address] [place] [address] Neut # 4.99 x10EE3/UL Normal 1.50 - 7.10 [facility] Comment on above: Performed By: #### 2 02669 #### [facility],[address] [place] [address] 28393 Neutrophils/100 WBC (Bld) 64.6 % Normal 46.0 - 76.0 [facility] Comment on above: Performed By: #### 2 69284 #### [facility],[address] [place], [place] [id number] PLATELET 314 x10EE3/UL Normal 150 - 450 [facility] Comment on above: Performed By: #### 2 74030 #### [facility],[address] [place] [address] 45106 Platelet mean volume (Bld) [Entitic vol] 8.6 fL Normal 6.4 - 10.5 [facility] Comment on above: Result Comment: AUTO MATED DIFFERENTIAL Performed By: #### 2 78682 #### [facility],[address] [place] [address] 54668 RBC 3.77 x 10EE6/UL Low 4.50 - 6.[address] [facility] Comment on above: Performed By: #### 2 93434 #### [facility],[address] [place] [address] 87757 WBC 7.7 x 10EE3/UL Normal 4.5 - 10.8 [facility] Comment on above: Performed By: #### 2 47711 #### [facility],[address] [place], [place] [id number] CMP with eGFRon 08-04-2024 AGE 74 years Normal [facility] Comment on above: Performed By: #### 2 76902 #### [facility],[address] [place] [address] 24675 Albumin [Mass/Vol] 3.7 g/dL Normal 3.4 - 5.0 [facility] Comment on above: Performed By: #### 2 39068 #### [facility],[address] [place] [address] 92407 Albumin/Globulin [Mass ratio] 0.9 {ratio} Normal 0.9 - 1.6 [facility] Comment on above: Performed By: #### 2 77290 #### [facility],[address] [place] [address] 29724 ALK PHOS 80 U/L Normal 46 - 116 [facility] Comment on above: Performed By: #### 2 35196 #### [facility],[address] [place] [address] 94252 ALT [Catalytic activity/Vol] 21 U/L Normal 16 - 63 [facility] Comment on above: Performed By: #### 2 87939 #### [facility],[address] [place] [address] 26240 Anion gap [Moles/Vol] 14 mmol/L Normal 10 - 20 [facility] Comment on above: Performed By: #### 2 28783 #### [facility],[address] [place] [address] 16089 AST [Catalytic activity/Vol] 23 U/L Normal 15 - 37 [facility] Comment on above: Performed By: #### 2 54341 #### [facility],[address] [place] [address] 72266 B/C RATIO 12 ratio Normal 0 - 30 [facility] Comment on above: Performed By: #### 2 37329 #### [facility],[address] [place] [address] 06184 Bilirubin [Mass/Vol] 0.5 mg/dL Normal 0.2 - 1.0 [facility] Comment on above: Performed By: #### 2 89594 #### [facility],[address] [place] [address] 38462 Calcium [Mass/Vol] 9.3 mg/dL Normal 8.5 - 10.1 [facility] Comment on above: Performed By: #### 2 31629 #### [facility],[address] [place] [address] 45685 Chloride [Moles/Vol] 105 mmol/L Normal 98 - 107 [facility] Comment on above: Performed By: #### 2 99883 #### [facility],[address] [place] [address] 97488 CMP with eGFR Normal [facility] Comment on above: Result Comment: COMP REHENSIVE METABOLIC PANEL Performed By: #### 2 46314 #### [facility],[address] [place] [address] 04928 CO2 [Moles/Vol] 28.8 mmol/L Normal 21.0 - 32.0 [facility] Comment on above: Performed By: #### 2 34844 #### [facility],[address] [place] [address] 58848 Creatinine [Mass/Vol] 1.42 mg/dL High 0.70 - 1.30 [facility] Comment on above: Performed By: #### 2 48335 #### [facility],[address] [place] [address] 96997 eGFR 49 ML/MINUTE Low 60 - 999 [facility] Comment on above: Performed By: #### 2 83610 #### [facility],[address] [place] [address] 19531 eGFR(AA) 59 ML/MINUTE Low 60 - 999 [facility] Comment on above: Result Comment: ACCO RDING TO THE NATIONAL KIDNEY DISEASE EDUCATION PROGRAM(NKDE), A NORMAL eGFR IS A VALUE GREATER THAN OR EQUAL TO 60 ML/MIN/1.73 SQ METERS. CHRONIC KIDNEY DISEASE: <60mL/MIN/1.73 SQ METERS KIDNEY FAILURE: <15mL/MIN/1.73 SQ METERS THIS TEST SHOULD ONLY BE USED FOR PATIENTS 18 YEARS OF AGE AND OLDER. Performed By: #### 2 54987 #### [facility],[address] [place] [address] 69468 Globulin (S) [Mass/Vol] 4.2 g/dL High 1.5 - 3.8 [facility] Comment on above: Performed By: #### 2 13303 #### [facility],[address] [place] [address] 61340 Glucose [Mass/Vol] 83 mg/dL Normal 74 - 106 [facility] Comment on above: Performed By: #### 2 18407 #### [facility],[address] [place] [address] 68295 Potassium [Moles/Vol] 4.6 mmol/L Normal 3.5 - 5.1 [facility] Comment on above: Performed By: #### 2 45969 #### [facility],[address] [place] [address] 40973 Protein [Mass/Vol] 7.9 g/dL Normal 6.4 - 8.2 [facility] Comment on above: Performed By: #### 2 31849 #### [facility],[address] [place] [address] 31754 Sodium [Moles/Vol] 143 mmol/L Normal 136 - 145 [facility] Comment on above: Performed By: #### 2 64830 #### [facility],[address] [place] [address] 97703 Urea nitrogen [Mass/Vol] 17 mg/dL Normal 7 - 18 [facility] Comment on above: Performed By: #### 2 31887 #### [facility],[address] [place] [address] 73003 FOLATESon 08-04-2024 FOLATES 75.9 ng/ml High 8.6 - 58.9 [facility] Comment on above: Performed By: #### 2 57676 #### [facility],[address] [place] [address] 36929 IRON AND TIBCon 08-04-2024 %SATURATION 25 % Normal [facility] Comment on above: Performed By: #### 2 74825 #### [facility],[address] [place] [address] 67670 Iron [Mass/Vol] 69 ug/dL Normal 65 - 175 [facility] Comment on above: Performed By: #### 2 40686 #### [facility],[address] [place] [address] 81641 TIBC 281 ug/dl Normal 250 - 450 [facility] Comment on above: Performed By: #### 2 39023 #### [facility],[address] [place] [address] 58510 UIBC 212 ug/dL Normal 155 - 355 [facility] Comment on above: Performed By: #### 2 55923 #### [facility],[address] [place] [address] 97736 LIPID PROFILEon 08-04-2024 Cholesterol [Mass/Vol] 183 mg/dL Normal 0 - 240 [facility] Comment on above: Performed By: #### 2 70087 #### [facility],[address] [place] [address] 26459 Cholesterol in HDL [Mass/Vol] 70 mg/dL High 40 - 60 [facility] Comment on above: Performed By: #### 2 51109 #### [facility],[address] [place] [address] 57709 Cholesterol in LDL [Mass/Vol] 95 mg/dL Normal 0 - 129 [facility] Comment on above: Performed By: #### 2 05324 #### [facility],[address] [place] [address] 26844 Cholesterol.total/C holesterol in HDL [Mass ratio] 2.6 {ratio} Normal 0.0 - 5.0 [facility] Comment on above: Performed By: #### 2 76221 #### [facility],[address] [place] [address] 33510 Lipid [address] [facility] Comment on above: Result Comment: LIPI D PROFILE Performed By: #### 2 43194 #### [facility],[address] [place] [address] 64819 Triglyceride [Mass/Vol] 92 mg/dL Normal 0 - 150 [facility] Comment on above: Performed By: #### 2 41369 #### [facility],[address] [place] [address] 82304 TSHon 08-04-2024 TSH Qn 1.11 m[IU]/L Normal 0.35 - 3.74 [facility] Comment on above: Performed By: #### 2 58530 #### [facility],[address] [place] [address] 31756 VITAMIN B-12on 08-04-2024 Cobalamin (Vitamin B12) [Mass/Vol] 343 pg/mL Normal 193 - 986 [facility] Comment on above: Performed By: #### 2 65359 #### [address] [address] VITAMIN D, 25 HYDROXYon -2 VitD 47.50 ng/mL Normal 30.00 - 100 [facility] Comment on above: Result Comment: 25-O HD3 indicates both endogenous production and supplementation. 25-OHD2 is an indicator of exogenous sources, such as diet or supplementation. Therapy is based on measurement of Total 25-OHD, with levels <20 ng/mL indicative of Vitamin D deficiency, while levels between 20 ng/mL and 30 ng/mL suggest insufficiency. Optimal levels are >=30ng/mL. Vitamin D, 25-OH D3 Not Established Vitamin D, 25-OH D2 Not Established Performed By: #### 2 93307 #### [facility],[address] [place] [address] 95460 CV VENOUS LEG RTon CV VENOUS LEG RT [address] [address] Patient: CARLA DANIELS Phone#: : 1950 Age: 74 Gender: M Pt. Type: Out Account: [id number] Location: [facility] Ordering: LVIIA KEYES Exam Date: 04/29/2024/14:37 Family Phys: Charge Code: [id number] Physician: Coles Order #: [id number] Dose#: PROCEDURE: VENOUS DOPPLER RT LEG COMPARISON: [facility], , VENOUS DOPPLER RT LEG, 01/18/2017, 14:54. INDICATIONS: RT LE PAIN AFTER FALL TECHNIQUE: Color duplex Doppler ultrasound evaluation analysis was performed in the usual manner. [employer]: DUSTIN BARR RVT RCS RISK FACTORS FOR VENOUS DISEASE: LE trauma/injury Fall EXAMINATION: RIGHT +Present -Reduced o Absent LEFT SPONT PHASIC AUG REFLUX COMP SPONT PHASIC AUG REFLUX COM + + + o + CFV + + + o + + SFJ + + + o + FV (prox) + FV (mid) + FV (dist) + + + o + POP V + + + o + T/P TRUNK + + + o + PTV + + + o + PERONEAL V + GSV GASTROC SOLEAL V [employer]'S NOTES: FINDINGS: THROMBI: None visible. Continued Report - Page 2 of 2 Patient: CARLA DANIELS Phone#: : 1950 Age: 74 Gender: M Pt. Type: Out Account: [id number] Location: 052 Ordering: LIVIA KEYES Exam Date: 04/29/2024/14:37 Family Phys: Charge Code: 622504 Physician: Coles Order #: [id number] Dose#: COMPRESSIBILITY: Normal. OTHER: Negative. CONCLUSION: 1. No evidence of deep venous thrombosis in the right lower extremity Dictated by: Carlyn Hubbard MD on 04/29/2024 at 16:46 Approved by: Carlyn Hubbard MD on 04/29/2024 at 16:49 Normal [facility] CBC + DIFFon 03-20-2024 Baso # 0.02 x10EE3/UL Normal 0.00 - 0.10 [facility] Comment on above: Performed By: #### 2 88748 #### [place] [address] Basophils/100 WBC (Bld) 0.3 % Normal 0.0 - 2.0 [facility] Comment on above: Performed By: #### 2 31111 #### [facility],[address] [place] [address] CBC + DIFF Normal [facility] Comment on above: Result Comment: CBC- COMPLETE BLOOD COUNT Performed By: #### 2 67154 #### [facility],[address] [place] [address] EO # 0.24 x10EE3/UL Normal 0.00 - 0.50 [facility] Comment on above: Performed By: #### 2 61956 #### [address],[place] [address] Eosinophils/100 WBC (Bld) 3.6 % Normal 0.0 - 7.0 [facility] Comment on above: Performed By: #### 2 96449 #### [facility],[address] [place] [address] 29865 Erythrocyte distribution width (RBC) [Ratio] 13.3 % Normal 12.0 - 15.6 [facility] Comment on above: Performed By: #### 2 45083 #### [facility],[address] [place], [place] [id number] Hematocrit (Bld) [Volume fraction] 37.5 % Low 40.0 - 52.0 [facility] Comment on above: Performed By: #### 2 52163 #### [facility],[address] [place] [address] Hemoglobin (Bld) [Mass/Vol] 12.4 g/dL Low 13.0 - 17.5 [facility] Comment on above: Performed By: #### 2 68126 #### [facility],[address] [place] [address] 80872 Lymph # 2.51 x10EE3/UL Normal 0.80 - 2.80 [facility] Comment on above: Performed By: #### 2 53810 #### [facility],[address] [place] [address] 74221 Lymphocytes/100 WBC (Bld) 38.2 % Normal 20.0 - 45.0 [facility] Comment on above: Performed By: #### 2 27056 #### [facility],[address] [place] [address] 59318 MANUAL DIFF N/A Normal [facility] Comment on above: Performed By: #### 2 89635 #### [facility],[address] [place] [address] 53825 MCH (RBC) [Entitic mass] 32 pg Normal 27 - 33 [facility] Comment on above: Performed By: #### 2 52167 #### [facility],[address] [place] [address] MCHC 33 X10 3 Normal 32 - 36 [facility] Comment on above: Performed By: #### 2 12226 #### [facility],[address] [place] [address] 45638 MCV (RBC) [Entitic vol] 96 fL Normal 81 - 98 [facility] Comment on above: Performed By: #### 2 56868 #### [facility],[address] [place] [address] [place]der # 0.69 x10EE3/UL Normal 0.20 - 1.00 [facility] Comment on above: Performed By: #### 2 14569 #### [facility],[address] [place] [address] MONOS % 10.4 % High 0.0 - 10.0 [facility] Comment on above: Performed By: #### 2 74652 #### [facility],[address] [place], [place] [address] Morphology Harinder (Bld) [Interp] N/A Normal [facility] Comment on above: Performed By: #### 2 03784 #### [facility],[address] [place] [address] Neut # 3.11 x10EE3/UL Normal 1.50 - 7.10 [facility] Comment on above: Performed By: #### 2 53955 #### [facility],[address] [place] [address] Neutrophils/100 WBC (Bld) 47.4 % Normal 46.0 - 76.0 [facility] Comment on above: Performed By: #### 2 18804 #### [facility],[address] [place], [place] [phone] PLATELET 308 x10EE3/UL Normal 150 - 450 [facility] Comment on above: Performed By: #### 2 59436 #### [facility],[address] [place] [address] 70960 Platelet mean volume (Bld) [Entitic vol] 8.9 fL Normal 6.4 - 10.5 [facility] Comment on above: Result Comment: AUTO MATED DIFFERENTIAL Performed By: #### 2 65947 #### [facility],[address] [place] [address] 10745 RBC 3.89 x 10EE6/UL Low 4.50 - 6.[address] [facility] Comment on above: Performed By: #### 2 14962 #### [facility],[address] [place] [address] 11640 WBC 6.6 x 10EE3/UL Normal 4.5 - 10.8 [facility] Comment on above: Performed By: #### 2 72112 #### [facility],[address] [place] [address] 61416 CMP with eGFRon 03-20-2024 AGE 73 years Normal [facility] Comment on above: Performed By: #### 2 14243 #### [facility],[address] [place] [address] 04643 Albumin [Mass/Vol] 3.3 g/dL Low 3.4 - 5.0 [facility] Comment on above: Performed By: #### 2 02265 #### [facility],[address] [place] [address] 22029 Albumin/Globulin [Mass ratio] 0.9 {ratio} Normal 0.9 - 1.6 [facility] Comment on above: Performed By: #### 2 28667 #### [facility],[address] [place] [address] 06174 ALK PHOS 91 U/L Normal 46 - 116 [facility] Comment on above: Performed By: #### 2 12448 #### [facility],[address] [place] [address] 15805 ALT [Catalytic activity/Vol] 23 U/L Normal 16 - 63 [facility] Comment on above: Performed By: #### 2 91542 #### [facility],[address] [place] [address] 82032 Anion gap [Moles/Vol] 11 mmol/L Normal 10 - 20 [facility] Comment on above: Performed By: #### 2 67659 #### [facility],[address] [place] [address] 20807 AST [Catalytic activity/Vol] 20 U/L Normal 15 - 37 [facility] Comment on above: Performed By: #### 2 23264 #### [facility],[address] [place] [address] 01891 B/C RATIO 13 ratio Normal 0 - 30 [facility] Comment on above: Performed By: #### 2 17760 #### [facility],[address] [place] [address] 36014 Bilirubin [Mass/Vol] 0.4 mg/dL Normal 0.2 - 1.0 [facility] Comment on above: Performed By: #### 2 27543 #### [facility],[address] [place] [address] 76623 Calcium [Mass/Vol] 9.4 mg/dL Normal 8.5 - 10.1 [facility] Comment on above: Performed By: #### 2 07253 #### [facility],[address] [place] [address] 38041 Chloride [Moles/Vol] 106 mmol/L Normal 98 - 107 [facility] Comment on above: Performed By: #### 2 87198 #### [facility],[address] [place] [address] 95514 CMP with eGFR Normal [facility] Comment on above: Result Comment: COMP REHENSIVE METABOLIC PANEL Performed By: #### 2 48193 #### [facility],[address] [place] [address] 23310 CO2 [Moles/Vol] 28.9 mmol/L Normal 21.0 - 32.0 [facility] Comment on above: Performed By: #### 2 75746 #### [facility],[address] [place] [address] 80642 Creatinine [Mass/Vol] 1.52 mg/dL High 0.70 - 1.30 [facility] Comment on above: Performed By: #### 2 81288 #### [facility],[address] [place] [address] 70567 eGFR 45 ML/MINUTE Low 60 - 999 [facility] Comment on above: Performed By: #### 2 35327 #### [facility],[address] [place] [address] 90537 eGFR(AA) 55 ML/MINUTE Low 60 - [address] [place] [address] Comment on above: Result Comment: ACCO RDING TO THE NATIONAL KIDNEY DISEASE EDUCATION PROGRAM(NKDE), A NORMAL eGFR IS A VALUE GREATER THAN OR EQUAL TO 60 ML/MIN/1.73 SQ METERS. CHRONIC KIDNEY DISEASE: <60mL/MIN/1.73 SQ METERS KIDNEY FAILURE: <15mL/MIN/1.73 SQ METERS THIS TEST SHOULD ONLY BE USED FOR PATIENTS 18 YEARS OF AGE AND OLDER. Performed By: #### 2 24995 #### [facility],[address] [place] [address] 83839 Globulin (S) [Mass/Vol] 3.7 g/dL Normal 1.5 - 3.8 [facility] Comment on above: Performed By: #### 2 93155 #### [facility],[address] [place] [address] 62528 Glucose [Mass/Vol] 102 mg/dL Normal 74 - 106 [facility] Comment on above: Performed By: #### 2 25426 #### [facility],[address] [place] [address] 59583 Potassium [Moles/Vol] 4.1 mmol/L Normal 3.5 - 5.1 [facility] Comment on above: Performed By: #### 2 60127 #### [facility],[address] [place] [address] 33459 Protein [Mass/Vol] 7.0 g/dL Normal 6.4 - 8.2 [facility] Comment on above: Performed By: #### 2 83495 #### [facility],[address] [place] [address] 71065 Sodium [Moles/Vol] 142 mmol/L Normal 136 - 145 [facility] Comment on above: Performed By: #### 2 10570 #### [facility],[address] [place] [address] 46781 Urea nitrogen [Mass/Vol] 20 mg/dL High 7 - 18 [facility] Comment on above: Performed By: #### 2 58289 #### [facility],[address] [place] [address] 20350 FOLATESon 03-20-2024 FOLATES 26.7 ng/ml Normal 8.6 - 58.9 [facility] Comment on above: Performed By: #### 2 58777 #### [facility],[address] [place] [address] 42763 LIPID PROFILEon 03-20-2024 Cholesterol [Mass/Vol] 159 mg/dL Normal 0 - 240 [facility] Comment on above: Performed By: #### 2 89114 #### [facility],[address] [place] [address] 30567 Cholesterol in HDL [Mass/Vol] 69 mg/dL High 40 - 60 [facility] Comment on above: Performed By: #### 2 67347 #### [facility],[address] [place] [address] 91575 Cholesterol in LDL [Mass/Vol] 76 mg/dL Normal 0 - 129 [facility] Comment on above: Performed By: #### 2 99592 #### [facility],[address] [place] [address] 23267 Cholesterol.total/C holesterol in HDL [Mass ratio] 2.3 {ratio} Normal 0.0 - 5.0 [facility] Comment on above: Performed By: #### 2 17921 #### [facility],[address] [place] [address] 63009 Lipid [address] [facility] Comment on above: Result Comment: LIPI D PROFILE Performed By: #### 2 02376 #### [facility],[address] [place] [address] 91912 Triglyceride [Mass/Vol] 69 mg/dL Normal 0 - 150 [facility] Comment on above: Performed By: #### 2 38735 #### [facility],[address] [place] [address] 63188 TSHon 03-20-2024 TSH Qn 3.56 m[IU]/L Normal 0.35 - 3.74 [facility] Comment on above: Performed By: #### 2 52272 #### [facility],[address] [place] [address] 89286 VITAMIN B-12on 03-20-2024 Cobalamin (Vitamin B12) [Mass/Vol] 397 pg/mL Normal 193 - 986 [facility] Comment on above: Performed By: #### 2 52624 #### [facility],[address] [place] [address] 09880 VITAMIN D, 25 HYDROXYon 12-0 VitD 48.40 ng/mL Normal 30.00 - 100 [facility] Comment on above: Result Comment: 25-O HD3 indicates both endogenous production and supplementation. 25-OHD2 is an indicator of exogenous sources, such as diet or supplementation. Therapy is based on measurement of Total 25-OHD, with levels <20 ng/mL indicative of Vitamin D deficiency, while levels between 20 ng/mL and 30 ng/mL suggest insufficiency. Optimal levels are >=30ng/mL. Vitamin D, 25-OH D3 Not Established Vitamin D, 25-OH D2 Not Established Performed By: #### 2 16633 #### [facility],[address] [place] [address] 94332 Ribs Uni Min 3V w/PA Cheston 11-20-2023 Ribs Uni Min 3V w/PA Chest [facility] Services [address] [place], [place] [address] Ribs Uni Min 3V w/PA Chest MR#: [id number] Acct: [id number] Name: SAVANAH DANIELS Rep #: [id number] : 1950 M 73 From: Joel ang MD PCP: Dr. Livia Keyes MD Status: REG CLI Study: Ribs Uni Min 3V w/PA Chest Date of Exam: 11/19 Exam# [id number] Ordering Dr: Livia Keyes MD [id number] STUDY: X-RAY - UNILATERAL RIBS ( RIGHT ) WITH CHEST REASON FOR EXAM: Male, 73 years old. CONTUSION POST FALL TECHNIQUE - RIBS: 4 view(s) of the ribs. TECHNIQUE - CHEST: Single PA view of the chest. COMPARISON: None. FINDINGS - RIBS: Nondisplaced fractures involving the anterior lateral aspects of the right eighth ninth and 10th ribs anterolaterally. FINDINGS - CHEST: The lungs are clear and expanded. There is no demonstrated pleural abnormality. Normal size heart. Normal mediastinum and kimani. Normal visualized pulmonary arteries. There is atherosclerotic calcification of the aortic arch with tortuosity. There are diffuse degenerative changes of the visualized thoracic spine. There are nondisplaced fractures of the right eighth ninth and 10th ribs anterolaterally. Aortic stent is seen as well as stenting of the common iliac arteries bilaterally. RAD/Ribs Uni Min 3V w/PA Chest IMPRESSION: RIBS: Nondisplaced fractures of the right eighth ninth and 10th ribs anterolaterally. CHEST: Normal x-ray examination of the chest. Electronically Signed: Joel Duke MD at 11:27 EDT , CC: Dr. iLvia Keyes MD Data Systems Analyst: Signed Normal [facility] Basophil percentageon 2021 Bilirubin [Mass/Vol] 0.20 mg/dL 0.20-1.00 [facility] Work Phone: Comment on above: For patients on eltr ombopag therapy, use of Dimension [place] TBIL is not recommended. Chloride [Moles/Vol] 108 mmol/L 98-107 [facility] Work Phone: Cholesterol [Mass/Vol] 169 mg/dL <200 [facility] Work Phone: Comment on above: <200 mg/dL Desirable 200-240 mg/dL Borderline >240 mg/dL High Risk Glucose [Mass/Vol] 92 mg/dL 74-106 [facility] Work Phone: Potassium [Moles/Vol] 4.2 mmol/L 3.5-5.1 [facility] Work Phone: Protein [Mass/Vol] 7.9 g/dL 6.4-8.2 [facility] Work Phone: Sodium [Moles/Vol] 140 mmol/L 136-145 [facility] Work Phone: Triglyceride [Mass/Vol] 152 mg/dL [facility] Work Phone: Comment on above: The drugs N-Acetylcy steine and Metamizole may falsely depress this assay.Serum Triglycerides Reference Interval Normal <150 mg/dL Borderline high 150 - 199 mg/dL High 200 - 499 mg/dL Very High > or = 500 mg/dL WBC (Bld) [#/Vol] 8.5 10*3/uL 4.4-11.0 [facility] Work Phone: Blood erythrocytes count (nu mber/volume)on 08-02-2021 RBC (Bld) [#/Vol] 3.84 10*6/uL 4.6-6.2 [facility] Work Phone: Blood hemoglobin measurement (mass/volume)on 08-02-2021 Hemoglobin (Bld) [Mass/Vol] 11.7 g/dL 13.0-16.5 [facility] Work Phone: Blood platelet mean volumeon 08-02-2021 Platelet mean volume (Bld) [Entitic vol] 10.7 fL 6.2-12.0 [facility] Work Phone: Determination of erythrocyte mean corpuscular volume (MCV)on 08-02-2021 MCV (RBC) [Entitic vol] 97.1 fL 80-94 [facility] Work Phone: Hematocrit Auto (Bld) [Volum e fraction]on 08-02-2021 Hematocrit (Bld) [Volume fraction] 37.3 % 40-54 [facility] Work Phone: Laboratory - Chemistry and C hemistry - challengeon 08-02-2021 ALP [Catalytic activity/Vol] 74 U/L 45-117 [facility] Work Phone: ALT [Catalytic activity/Vol] 34 U/L 16-61 [facility] Work Phone: CO2 [Moles/Vol] 24.0 mmol/L 21.0-32.0 [facility] Work Phone: Globulin (S) [Mass/Vol] 4.4 g/dL 2.2-4.2 [facility] Work Phone: Urea nitrogen/Creatinine [Mass ratio] 11.0 mg/mg 10-20 [facility] Work Phone: Laboratory - Hematology and Cell countson 08-02-2021 Erythrocyte distribution width (RBC) [Entitic vol] 46.2 fL 35.1-43.9 [facility] Work Phone: Erythrocyte distribution width (RBC) [Ratio] 12.9 % 11.6-14.6 [facility] Work Phone: MCH (RBC) [Entitic mass] 30.5 pg 27.0-32.0 [facility] Work Phone: MCHC Auto (RBC) [Mass/Vol]on 08-02-2021 MCHC (RBC) [Mass/Vol] 31.4 g/dL 32-36 [facility] Work Phone: No Panel Informationon 08-02 Estimated GFR (MDRD) Amer 54 mL/min >60 [facility] Work Phone: Comment on above: GFR Calc Estimated GFR (MDRD) Non-Af Amer 44 mL/min >60 [facility] Work Phone: Comment on above: Non- GFR Calc Prostate Specific Antigen Screen 0.37 ng/mL 0.00-4.00 [facility] Work Phone: Comment on above: This test was perfor med using the TPSA assay method for [employer] chemistry system. Values obtained with differentassay methods cannot be used interchangably.When changing PSA assays in the course of monitoring apatient, additional sequential testing should be carriedout to confirm baseline values. Thyroid Stimulating Hormone (TSH) 0.79 uIU/mL 0.358-3.74 [facility] Work Phone: Vitamin D 25-Hydroxy 16.8 ng/mL [facility] Work Phone: Comment on above: Vitamin D 25(OH) Sta tus Range Deficiency <20 ng/mL (50nmol/L) Insufficiency 20 - 30 ng/mL (50 - 75 nmol/L) Sufficiency 30 - 100 ng/mL (75 - 250 nmol/L) Toxicity >100 ng/mL (>250 nmol/L) Platelets bldon 08-02-2021 Platelets (Bld) [#/Vol] 361 10*3/uL 150-450 [facility] Work Phone: Serum or plasma albumin patricia urement (mass/volume)on 08-02-2021 Albumin [Mass/Vol] 3.5 g/dL 3.2-5.0 [facility] Work Phone: Serum or plasma albumin/glob ulin mass ratioon 08-02-2021 Albumin/Globulin [Mass ratio] 0.8 {ratio} 0.9-2.4 [facility] Work Phone: Serum or plasma calcium patricia urement (mass/volume)on 08-02-2021 Calcium [Mass/Vol] 9.2 mg/dL 8.5-10.1 [facility] Work Phone: Serum or plasma cholesterol in HDL measurement (mass/volume)on 08-02-2021 Cholesterol in HDL [Mass/Vol] 55 mg/dL [facility] Work Phone: Comment on above: The drugs N-Acetylcy steine and Metamizole may falsely depress this assay. Reference Range HDL <40 mg/dL Low HDL Cholesterol HDL >or= 60 mg/dL High HDL Cholesterol Serum or plasma cholesterol in VLDL measurement (mass/volume)on 08-02-2021 Cholesterol in VLDL [Mass/Vol] 30 mg/dL 5-40 [facility] Work Phone: Serum or plasma creatinine m easurement (mass/volume)on 08-02-2021 Creatinine [Mass/Vol] 1.64 mg/dL 0.70-1.30 [facility] Work Phone: Comment on above: The validity of the calculated GFR & GFRAA in patients over 70 years has not been determined. Clinical correlation is essential. Serum or plasma low density lipoprotein (LDL) cholesterol measurement (mass/volume)on 08-02-2021 Cholesterol in LDL [Mass/Vol] 84 mg/dL 0-130 [facility] Work Phone: Serum or plasma urea nitroge n measurement (mass/volume)on 08-02-2021 Urea nitrogen [Mass/Vol] 18 mg/dL 7-18 [facility] Work Phone: Thin prep Papanicolaou smear with manual screeningon 08-02-2021 Thin prep Papanicolaou smear with manual screening 19 U/L 15-37 [facility] Work Phone: Thin prep Papanicolaou smear with manual screening 8 5-15 [facility] Work Phone: XR SPINE CERVICAL AP/LAT/FLE X/EXTon 04-29-2021 XR SPINE CERVICAL AP/LAT/FLEX/EXT ORIGINAL EXAMINATION: 4 XRAY VIEWS OF THE CERVICAL SPINE INCLUDING FLEX/EX VIEWS 04/28/2021 10:50 am COMPARISON: CT cervical spine 10/11/2020 HISTORY: ORDERING SYSTEM PROVIDED HISTORY: Reason for Exam: post operative fusion FINDINGS: The cervical spine is imaged from C1 through C7. there is posterior decompression with essie and screw fixation C3-4. The hardware appears intact without evidence of fracture or loosening. There is straightening of the cervical lordosis which may be positional or related to spasm. Vertebral body heights are maintained. No prevertebral soft tissue swelling. Multilevel disc height loss with osteophyte formation and facet arthropathy. Vascular calcifications are seen in the neck. IMPRESSION: Surgical and degenerative changes without evidence of instability. Interpreted by: Alla Bae MD Preliminary Report By: Alla Bae MD Electronically signed By Alla Bae MD Dictated Date: 04/29/2021 9:01:04 AM Prelim Date: 04/29/2021 9:02:33 AM Sign Date: 04/29/2021 9:02:33 AM Ordering Provider: ASHANTI Chao [facility] ([place]) PTH, [place] 01-24-2021 PTH, Intact 38 pg/mL Normal 15-65 [facility] Comment on above: Performed By: #### P THI #### [facility] Routine Lab [address] [place], [place] [address] .Auto Diffon 11-15-2020 Basophil, Absolute 0.00 10 3/mcL Normal 0.00-0.27 [facility] ([place]) Comment on above: Performed By: #### C BC, ADIFF, ANEU, BMP, GFR #### [address] [address] Basophils/100 WBC (Bld) 0.3 % Normal 0.0-2.5 [facility] ([place]) Comment on above: Performed By: #### C BC, ADIFF, ANEU, BMP, GFR #### [address] [address] Eosinophil, Absolute 0.10 10 3/mcL Normal 0.00-0.65 [facility] ([place]) Comment on above: Performed By: #### C BC, ADIFF, ANEU, BMP, GFR #### [address] [address] Eosinophils/100 WBC (Bld) 0.9 % Normal 0.0-6.0 [facility] ([place]) Comment on above: Performed By: #### C BC, ADIFF, ANEU, BMP, GFR #### [address] [address] Lymphocyte, Absolute 0.70 10 3/mcL Low 0.90-4.32 [facility] ([place] Comment on above: Performed By: #### C BC, ADIFF, ANEU, BMP, GFR #### [address] [address] Lymphocytes/100 WBC (Bld) 7.1 % Low 20.0-40.0 [facility] ([place] Comment on above: Performed By: #### C BC, ADIFF, ANEU, BMP, GFR #### [address] [address] Monocyte, Absolute 0.70 10 3/mcL Normal 0.09-1.40 [facility] ([place]) Comment on above: Performed By: #### C BC, ADIFF, ANEU, BMP, GFR #### [address] [address] Monocytes/100 WBC (Bld) 7.5 % Normal 2.0-13.0 [facility] ([place] Comment on above: Performed By: #### C BC, ADIFF, ANEU, BMP, GFR #### [address] [address] Neutrophils/100 WBC (Bld) 84.2 % High 50.0-75.0 [facility] ([place] Comment on above: Performed By: #### C BC, ADIFF, ANEU, BMP, GFR #### [address] [address] .GFRon 11-15-2020 GFR >60 Normal [facility] ([place]) Comment on above: Result Comment: GFR Population mean for , Non- Americans Ages 20-29 = 116 mL/min/1.73 sq.m. Ages 30-39 = 107 mL/min/1.73 sq.m. Ages 40-49 = 99 mL/min/1.73 sq.m. Ages 50-59 = 93 mL/min/1.73 sq.m. Ages 60-69 = 85 mL/min/1.73 sq.m. Ages 70+ = 75 mL/min/1.73 sq.m. Chronic Kidney Disease: Less than 60 mL/min/1.73 square meters End Stage Renal Disease: Less than 15 mL/min/1.73 square meters Performed By: #### C BC, ADIFF, ANEU, BMP, GFR #### [address] [address] GFR Non- >60 Normal [facility] ([place]) Comment on above: Result Comment: GFR Population mean for , Non- Americans Ages 20-29 = 116 mL/min/1.73 sq.m. Ages 30-39 = 107 mL/min/1.73 sq.m. Ages 40-49 = 99 mL/min/1.73 sq.m. Ages 50-59 = 93 mL/min/1.73 sq.m. Ages 60-69 = 85 mL/min/1.73 sq.m. Ages 70+ = 75 mL/min/1.73 sq.m. Chronic Kidney Disease: Less than 60 mL/min/1.73 square meters End Stage Renal Disease: Less than 15 mL/min/1.73 square meters Performed By: #### C BC, ADIFF, ANEU, BMP, GFR #### [address] [address] .NEUABSon 11-15-2020 Neutrophil, Absolute 8.10 10 3/mcL Normal 2.25-8.10 [facility] ([place] Comment on above: Performed By: #### C BC, ADIFF, ANEU, BMP, GFR #### [address] [address] BMPon 11-15-2020 BUN/Creatinine Ratio 10.5 ratio Normal 10.0-22.0 [facility] ([place] Comment on above: Performed By: #### C BC, ADIFF, ANEU, BMP, GFR #### [address] [address] Calcium [Mass/Vol] 8.5 mg/dL Low 8.7-10.4 [facility] [place]) Comment on above: Result Comment: No te - New Reference Range in effect 19 Performed By: #### C BC, ADIFF, ANEU, BMP, GFR #### [address] [address] Chloride [Moles/Vol] 112 mmol/L High 98-110 [facility] ([place] Comment on above: Performed By: #### C BC, ADIFF, ANEU, BMP, GFR #### [address] [address] CO2 [Moles/Vol] 28 mmol/L Normal 22-32 [facility] ([place]) Comment on above: Performed By: #### C BC, ADIFF, ANEU, BMP, GFR #### [address] [address] Creatinine [Mass/Vol] 0.95 mg/dL Normal 0.60-1.40 [facility] ([place] Comment on above: Performed By: #### C BC, ADIFF, ANEU, BMP, GFR #### [address] [address] Electrolyte Balance 3.0 mEq/L Low 4.0-15.0 [facility] ([place]) Comment on above: Performed By: #### C BC, ADIFF, ANEU, BMP, GFR #### [address] [address] Glucose [Mass/Vol] 105 mg/dL Normal 82-115 [facility] [place] Comment on above: Performed By: #### C BC, ADIFF, ANEU, BMP, GFR #### [address] [address] Potassium [Moles/Vol] 4.9 mmol/L Normal 3.5-5.0 [facility] ([place]) Comment on above: Performed By: #### C BC, ADIFF, ANEU, BMP, GFR #### [place] [id number] Sodium [Moles/Vol] 143 mmol/L Normal 136-145 [facility] [place] Comment on above: Performed By: #### C BC, ADIFF, ANEU, BMP, GFR #### [place] [address] Urea nitrogen [Mass/Vol] 10.0 mg/dL Normal 8.0-22.0 [facility] ([place] Comment on above: Performed By: #### C BC, ADIFF, ANEU, BMP, GFR #### [place] [id number] CBCon 11-15-2020 Erythrocyte distribution width (RBC) [Ratio] 13.7 % Normal 11.5-15.5 [facility] ([place] Comment on above: Performed By: #### C BC, ADIFF, ANEU, BMP, GFR #### [place] [address] Hematocrit (Bld) [Volume fraction] 29.7 % Low 40.0-52.0 [facility] ([place] Comment on above: Performed By: #### C BC, ADIFF, ANEU, BMP, GFR #### [place] [address] Hgb 9.9 G/dL Low 13.0-17.5 [facility] ([place] Comment on above: Performed By: #### C BC, ADIFF, ANEU, BMP, GFR #### [place] [address] MCH (RBC) [Entitic mass] 32.5 pg Normal 27.0-33.0 [facility] ([place] Comment on above: Performed By: #### C BC, ADIFF, ANEU, BMP, GFR #### [place] [address] MCHC 33.4 G/dL Normal 32.0-36.0 [facility] ([place] Comment on above: Performed By: #### C BC, ADIFF, ANEU, BMP, GFR #### [address] [address] MCV (RBC) [Entitic vol] 97.2 fL Normal 81.0-100.0 [facility] ([place] Comment on above: Performed By: #### C BC, ADIFF, ANEU, BMP, GFR #### [address] [address] Platelet 203 10 3/mcL Normal 150-450 [facility] ([place]) Comment on above: Performed By: #### C BC, ADIFF, ANEU, BMP, GFR #### [address] [address] Platelet mean volume (Bld) [Entitic vol] 8.8 fL Normal 6.4-10.5 [facility] ([place] Comment on above: Performed By: #### C BC, ADIFF, ANEU, BMP, GFR #### [place] [address] RBC 3.06 10 6/mcL Low 4.50-6.00 [facility] ([place]) Comment on above: Performed By: #### C BC, ADIFF, ANEU, BMP, GFR #### [address] [address] WBC 9.60 10 3/mcL Normal 4.50-10.80 [facility] ([place] Comment on above: Performed By: #### C BC, ADIFF, ANEU, BMP, GFR #### [place] [address] XR CHEST 1 VIEWon 11-15-2020 XR CHEST 1 VIEW ORIGINAL EXAMINATION: ONE XRAY VIEW OF THE CHEST 11/15/2020 8:14 am COMPARISON: November 03, 2020 HISTORY: ORDERING SYSTEM PROVIDED HISTORY: Reason for Exam: cough FINDINGS: The heart is normal in size and there is no vascular congestion present. There is consolidation identified at the right mid and lower lung peripherally, new since the previous exam. Left lung is clear. No pleural fluid seen. IMPRESSION: Prominent right mid and lower lung consolidation compatible with pneumonia. Follow-up to resolution recommended to exclude other etiologies. Interpreted by: Johnny Cotto Preliminary Report By: Johnny Cotto Electronically signed By Johnny Cotto Dictated Date: 11/15/2020 8:48:46 AM Prelim Date: 11/15/2020 8:49:18 AM Sign Date: 11/15/2020 8:49:18 AM Ordering Provider: DANA GARCIA [facility] ([place]) XR CHEST 2 VIEWSon XR CHEST 2 VIEWS ORIGINAL EXAMINATION: TWO XRAY VIEWS OF THE CHEST11/15/2020 9:42 am COMPARISON: 11/15/2020 HISTORY: ORDERING SYSTEM PROVIDED HISTORY: Reason for Exam: Shortness of breath FINDINGS: Cardiomegaly and atherosclerosis noted. Multifocal airspace disease seen in the right lung, most confluent in the central and peripheral aspect of the right lung. There is a right pleural effusion. Mild patchy atelectasis in/airspace disease seen in the left lung base. No pneumothorax identified. Small pleural effusions seen. Degenerative changes identified in the spine. IMPRESSION: 1. Multifocal airspace disease is more severe on the right. Correlate for signs of atypical pneumonia. Follow to resolution. 2. Small right pleural effusion Interpreted by: Kofi House Preliminary Report By: Kofi House Electronically signed By Kofi House Dictated Date: 11/15/2020 10:57:40 AM Prelim Date: 11/15/2020 10:59:04 AM Sign Date: 11/15/2020 10:59:04 AM Ordering Provider: SYLVIA GILL [facility] ([place]) .GFRon 11-14-2020 GFR >60 [facility] ([place]) Comment on above: Result Comment: GFR Population mean for , Non- Americans Ages 20-29 = 116 mL/min/1.73 sq.m. Ages 30-39 = 107 mL/min/1.73 sq.m. Ages 40-49 = 99 mL/min/1.73 sq.m. Ages 50-59 = 93 mL/min/1.73 sq.m. Ages 60-69 = 85 mL/min/1.73 sq.m. Ages 70+ = 75 mL/min/1.73 sq.m. Chronic Kidney Disease: Less than 60 mL/min/1.73 square meters End Stage Renal Disease: Less than 15 mL/min/1.73 square meters Performed By: #### C BC, ADIFF, ANEU, BMP, GFR #### [address] [address] GFR Non- >60 Normal [facility] ([place]) Comment on above: Result Comment: GFR Population mean for , Non- Americans Ages 20-29 = 116 mL/min/1.73 sq.m. Ages 30-39 = 107 mL/min/1.73 sq.m. Ages 40-49 = 99 mL/min/1.73 sq.m. Ages 50-59 = 93 mL/min/1.73 sq.m. Ages 60-69 = 85 mL/min/1.73 sq.m. Ages 70+ = 75 mL/min/1.73 sq.m. Chronic Kidney Disease: Less than 60 mL/min/1.73 square meters End Stage Renal Disease: Less than 15 mL/min/1.73 square meters Performed By: #### C BC, ADIFF, ANEU, BMP, GFR #### [place] [address] BUN 11-14-2020 Urea nitrogen [Mass/Vol] 8.0 mg/dL Normal 8.0-22.0 [facility] ([place] Comment on above: Performed By: #### C BC, ADIFF, ANEU, BMP, GFR #### [place] [address] CRE 11-14-2020 Creatinine [Mass/Vol] 1.05 mg/dL Normal 0.60-1.40 [facility] ([place] Comment on above: Performed By: #### C BC, ADIFF, ANEU, BMP, GFR #### [place] [address] [facility] LDose Vancomycin:(trough) Unknown Normal [facility] ([place] Comment on above: Performed By: #### C BC, ADIFF, ANEU, BMP, GFR #### [place] [address] Vancomycin Tr 11.5 mcg/mL Normal 5.0-20.0 [facility] ([place] Comment on above: Performed By: #### C BC, ADIFF, ANEU, BMP, GFR #### [address] [address] .GFRon 11-13-2020 GFR Non- >60 Normal [facility] ([place] Comment on above: Result Comment: GFR Population mean for , Non- Americans Ages 20-29 = 116 mL/min/1.73 sq.m. Ages 30-39 = 107 mL/min/1.73 sq.m. Ages 40-49 = 99 mL/min/1.73 sq.m. Ages 50-59 = 93 mL/min/1.73 sq.m. Ages 60-69 = 85 mL/min/1.73 sq.m. Ages 70+ = 75 mL/min/1.73 sq.m. Chronic Kidney Disease: Less than 60 mL/min/1.73 square meters End Stage Renal Disease: Less than 15 mL/min/1.73 square meters Performed By: #### C BC, ADIFF, ANEU, BMP, GFR #### [address] [address] GFR >60 Normal [facility] ([place]) Comment on above: Result Comment: GFR Population mean for , Non- Americans Ages 20-29 = 116 mL/min/1.73 sq.m. Ages 30-39 = 107 mL/min/1.73 sq.m. Ages 40-49 = 99 mL/min/1.73 sq.m. Ages 50-59 = 93 mL/min/1.73 sq.m. Ages 60-69 = 85 mL/min/1.73 sq.m. Ages 70+ = 75 mL/min/1.73 sq.m. Chronic Kidney Disease: Less than 60 mL/min/1.73 square meters End Stage Renal Disease: Less than 15 mL/min/1.73 square meters Performed By: #### C BC, ADIFF, ANEU, BMP, GFR #### [address] [address] BMPon 11-13-2020 BUN/Creatinine Ratio 9.0 ratio Low 10.0-22.0 [facility] ([place] Comment on above: Performed By: #### C BC, ADIFF, ANEU, BMP, GFR #### [address] [address] Calcium [Mass/Vol] 7.8 mg/dL Low 8.7-10.4 [facility] [place] Comment on above: Result Comment: No te - New Reference Range in effect 19 Performed By: #### C BC, ADIFF, ANEU, BMP, GFR #### [address] [address] Chloride [Moles/Vol] 116 mmol/L High 98-110 [facility] ([place] Comment on above: Performed By: #### C BC, ADIFF, ANEU, BMP, GFR #### [address] [address] CO2 [Moles/Vol] 22 mmol/L Normal 22-32 [facility] ([place] Comment on above: Performed By: #### C BC, ADIFF, ANEU, BMP, GFR #### [address] [address] Creatinine [Mass/Vol] 1.11 mg/dL Normal 0.60-1.40 [facility] ([place] Comment on above: Performed By: #### C BC, ADIFF, ANEU, BMP, GFR #### [place] [address] Electrolyte Balance 5.0 mEq/L Normal 4.0-15.0 [facility] ([place] Comment on above: Performed By: #### C BC, ADIFF, ANEU, BMP, GFR #### [address] [address] Glucose [Mass/Vol] 105 mg/dL Normal 82-115 [facility] [place] Comment on above: Performed By: #### C BC, ADIFF, ANEU, BMP, GFR #### [address] [address] Potassium [Moles/Vol] 4.5 mmol/L Normal 3.5-5.0 [facility] ([place]) Comment on above: Result Comment: Spec imen slightly hemolyzed. Performed By: #### C BC, ADIFF, ANEU, BMP, GFR #### [address] [address] Sodium [Moles/Vol] 143 mmol/L Normal 136-145 [facility] [place] Comment on above: Performed By: #### C BC, ADIFF, ANEU, BMP, GFR #### [address] [address] Urea nitrogen [Mass/Vol] 10.0 mg/dL Normal 8.0-22.0 [facility] ([place] Comment on above: Performed By: #### C BC, ADIFF, ANEU, BMP, GFR #### [address] [address] BGon 11-12-2020 Barometric Pressure 732 mmHg Normal [facility] ([place] Comment on above: Performed By: #### C BC, ADIFF, ANEU, BMP, GFR #### [address] [address] Base excess Calc (Bld) [Moles/Vol] -3.6000 mmol/L Normal [facility] ([place] Comment on above: Performed By: #### C BC, ADIFF, ANEU, BMP, GFR #### [address] [address] CO2 [Moles/Vol] 22.8 mmol/L Normal 22.0-30.0 [facility] ([place] Comment on above: Performed By: #### C BC, ADIFF, ANEU, BMP, GFR #### [address] [address] HCO3 (Bld) [Moles/Vol] 21.6 mmol/L Normal 21.0-29.0 [facility] ([place] Comment on above: Performed By: #### C BC, ADIFF, ANEU, BMP, GFR #### [address] [address] Oxygen (Bld) [Partial pressure] 218.1 mm[Hg] High 74.0-108.0 [facility] ([place] Comment on above: Performed By: #### C BC, ADIFF, ANEU, BMP, GFR #### [address] [address] Oxygen saturation in Blood 99.5 % High 92.0-96.0 [facility] ([place] Comment on above: Performed By: #### C BC, ADIFF, ANEU, BMP, GFR #### [address] [address] pCO2 39.4 mmHg Normal 32.0-46.0 [facility] ([place] Comment on above: Performed By: #### C BC, ADIFF, ANEU, BMP, GFR #### [place] [address] pH (Bld) 7.356 [pH] Low 7.380-7.460 [facility] ([place] Comment on above: Performed By: #### C BC, ADIFF, ANEU, BMP, GFR #### [place] [address] BGOHon 11-12-2020 Patient Location OPEN HEART Normal [facility] ([place] Comment on above: Performed By: #### C BC, ADIFF, ANEU, BMP, GFR #### [place] [address] CAORon 11-12-2020 Calcium Ionized OR 1.07 mmol/L Low 1.12-1.32 [facility] ([place] Comment on above: Performed By: #### C BC, ADIFF, ANEU, BMP, GFR #### [place] [address] GLUORon 11-12-2020 Glucose [Mass/Vol] 95 mg/dL Normal 82-115 [facility] [place] Comment on above: Performed By: #### C BC, ADIFF, ANEU, BMP, GFR #### [place] [id number] HCTORon 11-12-2020 Hematocrit (Bld) [Volume fraction] 31.0 % Low 42.0-52.0 [facility] ([place] Comment on above: Performed By: #### C BC, ADIFF, ANEU, BMP, GFR #### [place] [id number] HGBORon 11-12-2020 Hemoglobin OR 10.4 G/dL Low 13.0-17.5 [facility] ([place] Comment on above: Performed By: #### C BC, ADIFF, ANEU, BMP, GFR #### [address] [address] Emmanuel 11-12-2020 Potassium [Moles/Vol] 4.6 mmol/L Normal 3.5-5.0 [facility] ([place] Comment on above: Result Comment: Spec imen slightly hemolyzed. Performed By: #### C BC, ADIFF, ANEU, BMP, GFR #### [address] [address] KORon 11-12-2020 Potassium [Moles/Vol] 4.5 mmol/L Normal 3.5-5.0 [facility] ([place] Comment on above: Performed By: #### C BC, ADIFF, ANEU, BMP, GFR #### [address] [address] MGORon 11-12-2020 Magnesium [Mass/Vol] 1.6 mg/dL Normal 1.6-2.4 [facility] ([place] Comment on above: Performed By: #### C BC, ADIFF, ANEU, BMP, GFR #### [address] [address] NAORon 11-12-2020 Sodium [Moles/Vol] 136 mmol/L Normal 136-145 [facility] [place] Comment on above: Performed By: #### C BC, ADIFF, ANEU, BMP, GFR #### [place] [address] XR FLUORO 1-2 HRS TECH TIMEo n 11-12-2020 XR FLUORO 1-2 HRS TECH TIME ORIGINAL EXAMINATION: FLUORO MD - > 1 HR11/12/2020 12:16 pm Intraoperative fluoroscopy and image intensifier views of the cervical spine COMPARISON: None HISTORY: ORDERING SYSTEM PROVIDED HISTORY: Reason for Exam: neck pain, , , intraoperative imaging FINDINGS/IMPRESSION: Films - 0; Tech Time - 11:12:10; C-Arm # - 18, o-arm; Total Dose - 1.50 mgy 3.92 mgy ; Images - 1, 196; Video Surveillance Technician - mr; History - image cervical ; Fluoro Time - 7.2 sec, 3.40 sec ; There are multiple image intensifier views of the area of interest. There are also flat panel CT images generated from the C-arm data. Detail is limited. Please see intraoperative notes for additional details of the procedure. Interpreted by: Maurilio Fraire Preliminary Report By: Maurilio Fraire Electronically signed By Maurilio Fraire Dictated Date: 11/12/2020 12:25:18 PM Prelim Date: 11/12/2020 12:26:33 PM Sign Date: 11/12/2020 12:26:33 PM Ordering Provider: ASHANTI IBRAHIM [facility] ([place]) XR CHEST 2 VIEWSon XR CHEST 2 VIEWS ORIGINAL EXAMINATION: TWO XRAY VIEWS OF THE CHEST11/03/2020 3:56 pm CHEST AP/PA and LATERAL COMPARISON: None. HISTORY: ORDERING SYSTEM PROVIDED HISTORY: Cough Reason for Exam: Cough FINDINGS: Atherosclerosis noted in the aortic knob. The cardiomediastinal silhouette is otherwise within normal limits. There is no pulmonary vascular congestion. Hypoventilatory change. There is no focal consolidation. No pleural fluid or pneumothorax. Degenerative changes noted in the visualized spine. No aggressive osseous lesions are identified and there are no visible rib fractures. IMPRESSION: No evidence of acute cardiopulmonary process. I have personally reviewed the images of this examination and agree with the resident's findings and interpretation. Interpreted by: Kofi Da Silva Preliminary Report By: Johnny James Electronically signed By Kofi Da Silva Dictated Date: 11/04/2020 8:26:29 AM Prelim Date: 11/04/2020 10:23:05 AM Sign Date: 11/04/2020 10:23:05 AM Ordering Provider: ASHANTI IBRAHIM [facility] ([place]) .Auto Diffon 11-03-2020 Basophil, Absolute 0.00 10 3/mcL Normal 0.00-0.27 [facility] ([place]) Comment on above: Performed By: #### C BC, ADIFF, ANEU, BMP, GFR #### [facility] [address] [place] [address] Basophils/100 WBC (Bld) 0.8 % Normal 0.0-2.5 [facility] ([place] Comment on above: Performed By: #### C BC, ADIFF, ANEU, BMP, GFR #### [address] [address] Eosinophil, Absolute 0.30 10 3/mcL Normal 0.00-0.65 [facility] ([place] Comment on above: Performed By: #### C BC, ADIFF, ANEU, BMP, GFR #### [address] [address] Eosinophils/100 WBC (Bld) 4.5 % Normal 0.0-6.0 [facility] ([place]) Comment on above: Performed By: #### C BC, ADIFF, ANEU, BMP, GFR #### [address] [address] Lymphocyte, Absolute 1.30 10 3/mcL Normal 0.90-4.32 [facility] ([place]) Comment on above: Performed By: #### C BC, ADIFF, ANEU, BMP, GFR #### [address] [address] Lymphocytes/100 WBC (Bld) 21.2 % Normal 20.0-40.0 [facility] ([place]) Comment on above: Performed By: #### C BC, ADIFF, ANEU, BMP, GFR #### [address] [address] Monocyte, Absolute 0.60 10 3/mcL Normal 0.09-1.40 [facility] ([place] Comment on above: Performed By: #### C BC, ADIFF, ANEU, BMP, GFR #### [address] [address] Monocytes/100 WBC (Bld) 10.2 % Normal 2.0-13.0 [facility] ([place]) Comment on above: Performed By: #### C BC, ADIFF, ANEU, BMP, GFR #### [address] [address] Neutrophils/100 WBC (Bld) 63.3 % Normal 50.0-75.0 [facility] ([place]) Comment on above: Performed By: #### C BC, ADIFF, ANEU, BMP, GFR #### [address] [address] .GFRon 11-03-2020 GFR 50 ml/min/1.73sqm Normal [facility] ([place] Comment on above: Result Comment: GFR Population mean for , Non- Americans Ages 20-29 = 116 mL/min/1.73 sq.m. Ages 30-39 = 107 mL/min/1.73 sq.m. Ages 40-49 = 99 mL/min/1.73 sq.m. Ages 50-59 = 93 mL/min/1.73 sq.m. Ages 60-69 = 85 mL/min/1.73 sq.m. Ages 70+ = 75 mL/min/1.73 sq.m. Chronic Kidney Disease: Less than 60 mL/min/1.73 square meters End Stage Renal Disease: Less than 15 mL/min/1.73 square meters Performed By: #### C BC, ADIFF, ANEU, BMP, GFR #### [address] [address] GFR Non- 42 ml/min/1.73sqm Normal [facility] ([place]) Comment on above: Result Comment: GFR Population mean for , Non- Americans Ages 20-29 = 116 mL/min/1.73 sq.m. Ages 30-39 = 107 mL/min/1.73 sq.m. Ages 40-49 = 99 mL/min/1.73 sq.m. Ages 50-59 = 93 mL/min/1.73 sq.m. Ages 60-69 = 85 mL/min/1.73 sq.m. Ages 70+ = 75 mL/min/1.73 sq.m. Chronic Kidney Disease: Less than 60 mL/min/1.73 square meters End Stage Renal Disease: Less than 15 mL/min/1.73 square meters Performed By: #### C BC, ADIFF, ANEU, BMP, GFR #### [address] [address] .NEUABSon 11-03-2020 Neutrophil, Absolute 3.90 10 3/mcL Normal 2.25-8.10 [facility] ([place]) Comment on above: Performed By: #### C BC, ADIFF, ANEU, BMP, GFR #### [place] [id number] APTTon 11-03-2020 aPTT Coag (Bld) [Time] 28.7 s Normal 25.0-35.0 [facility] ([place]) Comment on above: Result Comment: For Heparin anticoagulation therapy, the recommended therapeutic range is: 54-77 seconds (APTT Correlation with Anti-Xa therapeutic range of 0.3-0.7 units/ml). PLEASE REFERENCE THE PHARMACY PROTOCOL FOR DOSING. Performed By: #### C BC, ADIFF, ANEU, BMP, GFR #### [place] [address] Heparin dose (APTT) None Normal [facility] ([place]) Comment on above: Performed By: #### C BC, ADIFF, ANEU, BMP, GFR #### [place] [address] CBCon 11-03-2020 Erythrocyte distribution width (RBC) [Ratio] 13.9 % Normal 11.5-15.5 [facility] ([place] Comment on above: Performed By: #### C BC, ADIFF, ANEU, BMP, GFR #### [place] [address] Hematocrit (Bld) [Volume fraction] 38.3 % Low 40.0-52.0 [facility] ([place] Comment on above: Performed By: #### C BC, ADIFF, ANEU, BMP, GFR #### [place] [address] Hgb 12.5 G/dL Low 13.0-17.5 [facility] ([place] Comment on above: Performed By: #### C BC, ADIFF, ANEU, BMP, GFR #### [place] [address] MCH (RBC) [Entitic mass] 31.5 pg Normal 27.0-33.0 [facility] ([place] Comment on above: Performed By: #### C BC, ADIFF, ANEU, BMP, GFR #### [place] [id number] MCHC 32.7 G/dL Normal 32.0-36.0 [facility] ([place] Comment on above: Performed By: #### C BC, ADIFF, ANEU, BMP, GFR #### [address] [address] MCV (RBC) [Entitic vol] 96.3 fL Normal 81.0-100.0 [facility] ([place] Comment on above: Performed By: #### C BC, ADIFF, ANEU, BMP, GFR #### [address] [address] Platelet 262 10 3/mcL Normal 150-450 [facility] ([place]) Comment on above: Performed By: #### C BC, ADIFF, ANEU, BMP, GFR #### [address] [address] Platelet mean volume (Bld) [Entitic vol] 9.1 fL Normal 6.4-10.5 [facility] ([place]) Comment on above: Performed By: #### C BC, ADIFF, ANEU, BMP, GFR #### [address] [address] RBC 3.98 10 6/mcL Low 4.50-6.00 [facility] ([place]) Comment on above: Performed By: #### C BC, ADIFF, ANEU, BMP, GFR #### [address] [address] WBC 6.10 10 3/mcL Normal 4.50-10.80 [facility] ([place] Comment on above: Performed By: #### C BC, ADIFF, ANEU, BMP, GFR #### [address] [address] CMPon 11-03-2020 Albumin Level 3.5 G/dL Normal 3.2-4.8 [facility] ([place] Comment on above: Performed By: #### C BC, ADIFF, ANEU, BMP, GFR #### [address] [address] Albumin/Globulin [Mass ratio] 1.0 {ratio} Normal 0.9-1.6 [facility] ([place] Comment on above: Performed By: #### C BC, ADIFF, ANEU, BMP, GFR #### [address] [address] ALP [Catalytic activity/Vol] 66 U/L Normal 38-126 [facility] ([place] Comment on above: Performed By: #### C BC, ADIFF, ANEU, BMP, GFR #### [address] [address] ALT [Catalytic activity/Vol] 33 U/L Normal 12-55 [facility] ([place] Comment on above: Performed By: #### C BC, ADIFF, ANEU, BMP, GFR #### [place] [id number] AST [Catalytic activity/Vol] 26 U/L Normal 8-34 [facility] ([place] Comment on above: Performed By: #### C BC, ADIFF, ANEU, BMP, GFR #### [place] [id number] Bili Total 0.40 mg/dL Normal 0.20-1.20 [facility] ([place] Comment on above: Result Comment: Use of this assay is not recommended for patients undergoing treatment with eltrombopag due to the potential for falsely elevated results. Performed By: #### C BC, ADIFF, ANEU, BMP, GFR #### [place] [address] BUN/Creatinine Ratio 14.5 ratio Normal 10.0-22.0 [facility] ([place] Comment on above: Performed By: #### C BC, ADIFF, ANEU, BMP, GFR #### [place] [id number] Calcium [Mass/Vol] 10.0 mg/dL Normal 8.7-10.4 [facility] [place] Comment on above: Result Comment: No te - New Reference Range in effect 19 Performed By: #### C BC, ADIFF, ANEU, BMP, GFR #### [place] [id number] Chloride [Moles/Vol] 106 mmol/L Normal 98-110 [facility] ([place] Comment on above: Performed By: #### C BC, ADIFF, ANEU, BMP, GFR #### [address] [address] CO2 [Moles/Vol] 27 mmol/L Normal 22-32 [facility] ([place]) Comment on above: Performed By: #### C BC, ADIFF, ANEU, BMP, GFR #### [address] [address] Creatinine [Mass/Vol] 1.65 mg/dL High 0.60-1.40 [facility] ([place]) Comment on above: Performed By: #### C BC, ADIFF, ANEU, BMP, GFR #### [address] [address] Electrolyte Balance 6.0 mEq/L Normal 4.0-15.0 [facility] ([place]) Comment on above: Performed By: #### C BC, ADIFF, ANEU, BMP, GFR #### [address] [address] Globulin 3.4 G/dL Normal 1.5-3.8 [facility] ([place] Comment on above: Performed By: #### C BC, ADIFF, ANEU, BMP, GFR #### [address] [address] Glucose [Mass/Vol] 103 mg/dL Normal 82-115 [facility] [place] Comment on above: Performed By: #### C BC, ADIFF, ANEU, BMP, GFR #### [address] [address] Potassium [Moles/Vol] 5.1 mmol/L High 3.5-5.0 [facility] ([place]) Comment on above: Performed By: #### C BC, ADIFF, ANEU, BMP, GFR #### [place] [id number] Sodium [Moles/Vol] 139 mmol/L Normal 136-145 [facility] [place] Comment on above: Performed By: #### C BC, ADIFF, ANEU, BMP, GFR #### [facility] [address] [place], [place] [address] Total Protein 6.9 G/dL Normal 5.7-8.2 [facility] ([place]) Comment on above: Result Comment: No te - New Reference Range in effect 19 Performed By: #### C BC, ADIFF, ANEU, BMP, GFR #### [address] [address] Urea nitrogen [Mass/Vol] 24.0 mg/dL High 8.0-22.0 [facility] ([place] Comment on above: Performed By: #### C BC, ADIFF, ANEU, BMP, GFR #### [address] [address] PROon 11-03-2020 INR Coag (PPP) [Relative time] 1.0 {INR} Normal [facility] ([place]) Comment on above: Result Comment: The [employer] (CHEST, 1992, 102:[id number]) recommended therapeutic range for oral anticoagulant therapy is: LOW RISK: Prophylaxis of venous thrombosis INR: 2.0-3.0 Treatment of pulmonary embolism 2.0-3.0 Prevention of systemic embolism 2.0-3.0 HIGH RISK: Mechanical prosthetic valves 2.5-3.5 Performed By: #### C BC, ADIFF, ANEU, BMP, GFR #### [address] [address] PT Coag (PPP) [Time] 12.3 s Normal 9.0-14.8 [facility] ([place]) Comment on above: Result Comment: Effe ctive 10/29/07, Protime results may be affected by some antibiotics (i.e. Ciprofloxacin, Azithromycin, Bactrim) which may potentiate the action of oral anticoagulants, with further increases in Protime/INR. Performed By: #### C BC, ADIFF, ANEU, BMP, GFR #### [address] [address] UAon 11-03-2020 Color (U) Yellow Normal [facility] ([place] Comment on above: Performed By: #### C BC, ADIFF, ANEU, BMP, GFR #### [address] [address] Glucose (U) [Mass/Vol] Negative Normal Negative [facility] ([place] Comment on above: Performed By: #### C BC, ADIFF, ANEU, BMP, GFR #### [address] [address] Ketones Ql (U) Negative Normal Neg-Trace [facility] ([place]) Comment on above: Performed By: #### C BC, ADIFF, ANEU, BMP, GFR #### [address] [address] UA Appear Clear Normal Clear [facility] ([place] Comment on above: Performed By: #### C BC, ADIFF, ANEU, BMP, GFR #### [address] [address] UA Blood Negative Normal Neg-Trace [facility] ([place] Comment on above: Performed By: #### C BC, ADIFF, ANEU, BMP, GFR #### [place] [address] UA Leuk Est Negative Normal Negative [facility] ([place] Comment on above: Performed By: #### C BC, ADIFF, ANEU, BMP, GFR #### [address] [address] UA Nitrite Negative Normal Negative [facility] ([place] Comment on above: Performed By: #### C BC, ADIFF, ANEU, BMP, GFR #### [place] [id number] UA pH 6.0 Normal 5.0 - 8.0 [facility] ([place] Comment on above: Performed By: #### C BC, ADIFF, ANEU, BMP, GFR #### [place] [id number] UA Protein Negative Normal Negative [facility] ([place] Comment on above: Performed By: #### C BC, ADIFF, ANEU, BMP, GFR #### [place] [id number] UA Spec Grav 1.015 Normal 1.006-1.029 [facility] ([place] Comment on above: Performed By: #### C BC, ADIFF, ANEU, BMP, GFR #### [place] [address] UA Specimen Type Clean Catch Normal [facility] ([place] Comment on above: Performed By: #### C BC, ADIFF, ANEU, BMP, GFR #### [place] [address] UA Urobilinogen 0.2 E.U./dL Normal 0.2-1.0 [facility] ([place] Comment on above: Performed By: #### C BC, ADIFF, ANEU, BMP, GFR #### [place] [address] Urobilinogen (U) [Mass/Vol] Negative Normal Neg-Trace [facility] ([place] Comment on above: Performed By: #### C BC, ADIFF, ANEU, BMP, GFR #### [place] [address] .Auto Diffon 10-12-2020 Basophil, Absolute 0.10 10 3/mcL Normal 0.00-0.27 [facility] ([place]) Comment on above: Performed By: #### C BC, ADIFF, ANEU, BMP, GFR #### [place] [address] Basophils/100 WBC (Bld) 0.9 % Normal 0.0-2.5 [facility] ([place] Comment on above: Performed By: #### C BC, ADIFF, ANEU, BMP, GFR #### [place] [address] Eosinophil, Absolute 0.30 10 3/mcL Normal 0.00-0.65 [facility] ([place] Comment on above: Performed By: #### C BC, ADIFF, ANEU, BMP, GFR #### [place] [address] Eosinophils/100 WBC (Bld) 4.6 % Normal 0.0-6.0 [facility] ([place] Comment on above: Performed By: #### C BC, ADIFF, ANEU, BMP, GFR #### [address] [address] Lymphocyte, Absolute 1.50 10 3/mcL Normal 0.90-4.32 [facility] ([place] Comment on above: Performed By: #### C BC, ADIFF, ANEU, BMP, GFR #### [address] [address] Lymphocytes/100 WBC (Bld) 22.8 % Normal 20.0-40.0 [facility] ([place] Comment on above: Performed By: #### C BC, ADIFF, ANEU, BMP, GFR #### [address] [address] Monocyte, Absolute 0.70 10 3/mcL Normal 0.09-1.40 [facility] ([place] Comment on above: Performed By: #### C BC, ADIFF, ANEU, BMP, GFR #### [address] [address] Monocytes/100 WBC (Bld) 11.0 % Normal 2.0-13.0 [facility] ([place] Comment on above: Performed By: #### C BC, ADIFF, ANEU, BMP, GFR #### [address] [address] Neutrophils/100 WBC (Bld) 60.7 % Normal 50.0-75.0 [facility] ([place] Comment on above: Performed By: #### C BC, ADIFF, ANEU, BMP, GFR #### [address] [address] .GFRon 10-12-2020 GFR Non- 55 ml/min/1.73sqm Normal [facility] ([place]) Comment on above: Result Comment: GFR Population mean for , Non- Americans Ages 20-29 = 116 mL/min/1.73 sq.m. Ages 30-39 = 107 mL/min/1.73 sq.m. Ages 40-49 = 99 mL/min/1.73 sq.m. Ages 50-59 = 93 mL/min/1.73 sq.m. Ages 60-69 = 85 mL/min/1.73 sq.m. Ages 70+ = 75 mL/min/1.73 sq.m. Chronic Kidney Disease: Less than 60 mL/min/1.73 square meters End Stage Renal Disease: Less than 15 mL/min/1.73 square meters Performed By: #### C BC, ADIFF, ANEU, BMP, GFR #### [address] [address] GFR >60 Normal [facility] ([place]) Comment on above: Result Comment: GFR Population mean for , Non- Americans Ages 20-29 = 116 mL/min/1.73 sq.m. Ages 30-39 = 107 mL/min/1.73 sq.m. Ages 40-49 = 99 mL/min/1.73 sq.m. Ages 50-59 = 93 mL/min/1.73 sq.m. Ages 60-69 = 85 mL/min/1.73 sq.m. Ages 70+ = 75 mL/min/1.73 sq.m. Chronic Kidney Disease: Less than 60 mL/min/1.73 square meters End Stage Renal Disease: Less than 15 mL/min/1.73 square meters Performed By: #### C BC, ADIFF, ANEU, BMP, GFR #### [address] [address] .NEUABSon 10-12-2020 Neutrophil, Absolute 3.90 10 3/mcL Normal 2.25-8.10 [facility] ([place] Comment on above: Performed By: #### C BC, ADIFF, ANEU, BMP, GFR #### [address] [address] BMPon 10-12-2020 BUN/Creatinine Ratio 10.8 ratio Normal 10.0-22.0 [facility] ([place] Comment on above: Performed By: #### C BC, ADIFF, ANEU, BMP, GFR #### [address] [address] Calcium [Mass/Vol] 9.5 mg/dL Normal 8.4-10.1 [facility] [place] Comment on above: Result Comment: No te - New Reference Range in effect 19 Performed By: #### C BC, ADIFF, ANEU, BMP, GFR #### [address] [address] Chloride [Moles/Vol] 107 mmol/L Normal 98-110 [facility] ([place] Comment on above: Performed By: #### C BC, ADIFF, ANEU, BMP, GFR #### [address] [address] CO2 [Moles/Vol] 27 mmol/L Normal 22-32 [facility] ([place] Comment on above: Performed By: #### C BC, ADIFF, ANEU, BMP, GFR #### [address] [address] Creatinine [Mass/Vol] 1.30 mg/dL Normal 0.60-1.40 [facility] ([place] Comment on above: Performed By: #### C BC, ADIFF, ANEU, BMP, GFR #### [place] [id number] Electrolyte Balance 7.0 mEq/L Normal 4.0-15.0 [facility] ([place] Comment on above: Performed By: #### C BC, ADIFF, ANEU, BMP, GFR #### [address] [address] Glucose [Mass/Vol] 88 mg/dL Normal 82-115 [facility] [place] Comment on above: Performed By: #### C BC, ADIFF, ANEU, BMP, GFR #### [address] [address] Potassium [Moles/Vol] 4.4 mmol/L Normal 3.5-5.0 [facility] ([place] Comment on above: Performed By: #### C BC, ADIFF, ANEU, BMP, GFR #### [address] [address] Sodium [Moles/Vol] 141 mmol/L Normal 136-145 [facility] [place] Comment on above: Performed By: #### C BC, ADIFF, ANEU, BMP, GFR #### [address] [address] Urea nitrogen [Mass/Vol] 14.0 mg/dL Normal 8.0-22.0 [facility] ([place] Comment on above: Performed By: #### C BC, ADIFF, ANEU, BMP, GFR #### [address] [address] CBCon 10-12-2020 Erythrocyte distribution width (RBC) [Ratio] 15.2 % Normal 11.5-15.5 [facility] ([place] Comment on above: Performed By: #### C BC, ADIFF, ANEU, BMP, GFR #### [place] [address] Hematocrit (Bld) [Volume fraction] 37.1 % Low 40.0-52.0 [facility] ([place] Comment on above: Performed By: #### C BC, ADIFF, ANEU, BMP, GFR #### [place] [address] Hgb 12.2 G/dL Low 13.0-17.5 [facility] ([place] Comment on above: Performed By: #### C BC, ADIFF, ANEU, BMP, GFR #### [place] [address] MCH (RBC) [Entitic mass] 32.2 pg Normal 27.0-33.0 [facility] ([place] Comment on above: Performed By: #### C BC, ADIFF, ANEU, BMP, GFR #### [place] [address] MCHC 32.9 G/dL Normal 32.0-36.0 [facility] ([place] Comment on above: Performed By: #### C BC, ADIFF, ANEU, BMP, GFR #### [place] [address] MCV (RBC) [Entitic vol] 97.8 fL Normal 81.0-100.0 [facility] ([place] Comment on above: Performed By: #### C BC, ADIFF, ANEU, BMP, GFR #### [place] [id number] Platelet 277 10 3/mcL Normal 150-450 [facility] ([place] Comment on above: Performed By: #### C BC, ADIFF, ANEU, BMP, GFR #### [place] [address] Platelet mean volume (Bld) [Entitic vol] 8.6 fL Normal 6.4-10.5 [facility] ([place] Comment on above: Performed By: #### C BC, ADIFF, ANEU, BMP, GFR #### [place] [address] RBC 3.80 10 6/mcL Low 4.50-6.00 [facility] ([place] Comment on above: Performed By: #### C BC, ADIFF, ANEU, BMP, GFR #### [place] [address] WBC 6.40 10 3/mcL Normal 4.50-10.80 [facility] ([place] Comment on above: Performed By: #### C BC, ADIFF, ANEU, BMP, GFR #### [place] [address] MRI SPINE CERVICAL W/O CONTR Harper 10-12-2020 MRI SPINE CERVICAL W/O CONTRAST ORIGINAL MRI of the Cervical Spine, 10/12/2020 11:38 AM INDICATION: Fall with neck pain arm weakness COMPARISON: CT previous day TECHNIQUE: 1. Sagittal T1-weighted images. 2. Sagittal T2-weighted images. 3. Axial T2-weighted and T2*-weighted images. FINDINGS: There is straightening of the normal cervical lordosis. The individual vertebral bodies are intact. There is disc desiccation and disc space narrowing, generally mild and greatest at C5-C6. There is possibly minimal anterior cord T2 hyperintensity at C3-C4. There is otherwise no abnormal signal within the visualized portion of the cord and base of the brain. Specific findings by level: C3-C4: There is moderate uncovertebral hypertrophy and moderate bilateral lordosis. There is a superimposed mild central extrusion. There is mild ligamentum flavum labrum hypertrophy. There is mild to moderate stenosis, with impingement of the ventral cord and mild there is neural foraminal narrowing on both sides. C4-C5: There is uncovertebral hypertrophy and very mild spondylosis. There is is mild stenosis. C5-C6: there is moderate LEFT and mild RIGHT uncovertebral hypertrophy and there is mild to moderate spondylosis. There is mild to moderate stenosis. There is neural foraminal narrowing on both sides. C6-C7: There is mild uncovertebral hypertrophy and mild spondylosis. There is mild stenosis. There is neural foraminal narrowing on both sides. C7-T1: Unremarkable. IMPRESSION: 1. Mild to moderate stenosis with cord flattening and possibly minimal compression; there is equivocal, minimal T2 hyperintensity in the ventral cord. 2. Mild to moderate stenosis at C5-C6 and mild stenosis at C4-C5 and C6-C7. There is neural foraminal narrowing at multiple levels. Interpreted By: Lukasz Sevilla MD Preliminary Report By: Lukasz Sevilla MD Electronically Signed By: Lukasz Sevilla MD Dictated Date: 10/12/2020 11:41:43 AM Prelim Date: 10/12/2020 12:05:00 PM Sign Date: 10/12/2020 2:19:14 PM Ordering Provider:Monico Chao [facility] ([place]) .Auto Diffon 10-11-2020 Basophil, Absolute 0.10 10 3/mcL Normal 0.00-0.27 [facility] ([place]) Comment on above: Performed By: #### C BC, ADIFF, ANEU, BMP, GFR #### [address] [address] Basophils/100 WBC (Bld) 1.0 % Normal 0.0-2.5 [facility] ([place] Comment on above: Performed By: #### C BC, ADIFF, ANEU, BMP, GFR #### [address] [address] Eosinophil, Absolute 0.20 10 3/mcL Normal 0.00-0.65 [facility] ([place] Comment on above: Performed By: #### C BC, ADIFF, ANEU, BMP, GFR #### [address] [address] Eosinophils/100 WBC (Bld) 2.7 % Normal 0.0-6.0 [facility] ([place] Comment on above: Performed By: #### C BC, ADIFF, ANEU, BMP, GFR #### [address] [address] Lymphocyte, Absolute 1.50 10 3/mcL Normal 0.90-4.32 [facility] ([place] Comment on above: Performed By: #### C BC, ADIFF, ANEU, BMP, GFR #### [address] [address] Lymphocytes/100 WBC (Bld) 18.8 % Low 20.0-40.0 [facility] ([place] Comment on above: Performed By: #### C BC, ADIFF, ANEU, BMP, GFR #### [address] [address] Monocyte, Absolute 1.00 10 3/mcL Normal 0.09-1.40 [facility] ([place] Comment on above: Performed By: #### C BC, ADIFF, ANEU, BMP, GFR #### [address] [address] Monocytes/100 WBC (Bld) 11.9 % Normal 2.0-13.0 [facility] ([place] Comment on above: Performed By: #### C BC, ADIFF, ANEU, BMP, GFR #### [address] [address] Neutrophils/100 WBC (Bld) 65.6 % Normal 50.0-75.0 [facility] ([place] Comment on above: Performed By: #### C BC, ADIFF, ANEU, BMP, GFR #### [address] [address] .GFRon 10-11-2020 GFR 48 ml/min/1.73sqm Normal [facility] ([place] Comment on above: Result Comment: GFR Population mean for , Non- Americans Ages 20-29 = 116 mL/min/1.73 sq.m. Ages 30-39 = 107 mL/min/1.73 sq.m. Ages 40-49 = 99 mL/min/1.73 sq.m. Ages 50-59 = 93 mL/min/1.73 sq.m. Ages 60-69 = 85 mL/min/1.73 sq.m. Ages 70+ = 75 mL/min/1.73 sq.m. Chronic Kidney Disease: Less than 60 mL/min/1.73 square meters End Stage Renal Disease: Less than 15 mL/min/1.73 square meters Performed By: #### C BC, ADIFF, ANEU, BMP, GFR #### [address] [address] GFR Non- 40 ml/min/1.73sqm Normal [facility] ([place] Comment on above: Result Comment: GFR Population mean for , Non- Americans Ages 20-29 = 116 mL/min/1.73 sq.m. Ages 30-39 = 107 mL/min/1.73 sq.m. Ages 40-49 = 99 mL/min/1.73 sq.m. Ages 50-59 = 93 mL/min/1.73 sq.m. Ages 60-69 = 85 mL/min/1.73 sq.m. Ages 70+ = 75 mL/min/1.73 sq.m. Chronic Kidney Disease: Less than 60 mL/min/1.73 square meters End Stage Renal Disease: Less than 15 mL/min/1.73 square meters Performed By: #### C BC, ADIFF, ANEU, BMP, GFR #### [address] [address] .NEUABSon 10-11-2020 Neutrophil, Absolute 5.20 10 3/mcL Normal 2.25-8.10 [facility] ([place] Comment on above: Performed By: #### C BC, ADIFF, ANEU, BMP, GFR #### [address] [address] BMPon 10-11-2020 BUN/Creatinine Ratio 12.9 ratio Normal 10.0-22.0 [facility] ([place] Comment on above: Performed By: #### C BC, ADIFF, ANEU, BMP, GFR #### [address] [address] Calcium [Mass/Vol] 9.2 mg/dL Normal 8.4-10.1 [facility] [place] Comment on above: Result Comment: No te - New Reference Range in effect 19 Performed By: #### C BC, ADIFF, ANEU, BMP, GFR #### [address] [address] Chloride [Moles/Vol] 107 mmol/L Normal 98-110 [facility] ([place] Comment on above: Performed By: #### C BC, ADIFF, ANEU, BMP, GFR #### [address] [address] CO2 [Moles/Vol] 27 mmol/L Normal 22-32 [facility] ([place] Comment on above: Performed By: #### C BC, ADIFF, ANEU, BMP, GFR #### [address] [address] Creatinine [Mass/Vol] 1.71 mg/dL High 0.60-1.40 [facility] ([place] Comment on above: Performed By: #### C BC, ADIFF, ANEU, BMP, GFR #### [address] [address] Electrolyte Balance 4.0 mEq/L Normal 4.0-15.0 [facility] ([place]) Comment on above: Performed By: #### C BC, ADIFF, ANEU, BMP, GFR #### [address] [address] Glucose [Mass/Vol] 92 mg/dL Normal 82-115 [facility] [place] Comment on above: Performed By: #### C BC, ADIFF, ANEU, BMP, GFR #### [address] [address] Potassium [Moles/Vol] 4.3 mmol/L Normal 3.5-5.0 [facility] ([place] Comment on above: Performed By: #### C BC, ADIFF, ANEU, BMP, GFR #### [address] [address] Sodium [Moles/Vol] 138 mmol/L Normal 136-145 [facility] [place] Comment on above: Performed By: #### C BC, ADIFF, ANEU, BMP, GFR #### [address] [address] Urea nitrogen [Mass/Vol] 22.0 mg/dL Normal 8.0-22.0 [facility] ([place] Comment on above: Performed By: #### C BC, ADIFF, ANEU, BMP, GFR #### [place] [id number] CBCon 10-11-2020 Erythrocyte distribution width (RBC) [Ratio] 14.8 % Normal 11.5-15.5 [facility] ([place] Comment on above: Performed By: #### C BC, ADIFF, ANEU, BMP, GFR #### [place] [address] Hematocrit (Bld) [Volume fraction] 37.2 % Low 40.0-52.0 [facility] ([place] Comment on above: Performed By: #### C BC, ADIFF, ANEU, BMP, GFR #### [place] [address] Hgb 12.4 G/dL Low 13.0-17.5 [facility] ([place] Comment on above: Performed By: #### C BC, ADIFF, ANEU, BMP, GFR #### [place] [address] MCH (RBC) [Entitic mass] 32.0 pg Normal 27.0-33.0 [facility] ([place] Comment on above: Performed By: #### C BC, ADIFF, ANEU, BMP, GFR #### [place] [address] MCHC 33.2 G/dL Normal 32.0-36.0 [facility] ([place] Comment on above: Performed By: #### C BC, ADIFF, ANEU, BMP, GFR #### [place] [address] MCV (RBC) [Entitic vol] 96.5 fL Normal 81.0-100.0 [facility] ([place]) Comment on above: Performed By: #### C BC, ADIFF, ANEU, BMP, GFR #### [place] [address] Platelet 277 10 3/mcL Normal 150-450 [facility] ([place]) Comment on above: Performed By: #### C BC, ADIFF, ANEU, BMP, GFR #### [place] [address] Platelet mean volume (Bld) [Entitic vol] 8.0 fL Normal 6.4-10.5 [facility] ([place]) Comment on above: Performed By: #### C BC, ADIFF, ANEU, BMP, GFR #### [place] [address] RBC 3.86 10 6/mcL Low 4.50-6.00 [facility] ([place]) Comment on above: Performed By: #### C BC, ADIFF, ANEU, BMP, GFR #### [place] [address] WBC 8.00 10 3/mcL Normal 4.50-10.80 [facility] ([place]) Comment on above: Performed By: #### C BC, ADIFF, ANEU, BMP, GFR #### [place] [address] CT HEAD OR BRAIN W/O CONTRAS Ton 10-11-2020 CT HEAD OR BRAIN W/O CONTRAST ORIGINAL Head CT, 10/11/2020 3:11 PM INDICATION: pain COMPARISON: No TECHNIQUE: Routine non-contrast head CT. This exam was performed according to our departmental dose optimization program, and includes the following measures where applicable: automated exposure control, adjustment of the mAs and/or kVp according to patient size and/or exam, and an iterative reconstruction algorithm. FINDINGS: The ventricles and sulci are normal to mildly enlarged. There are no abnormal intra or extra-axial fluid collections. Bright-white matter differentiation is maintained. The calvaria and the bones of the base of the skull are intact. This examination was performed within 24 hours of presentation to the hospital. IMPRESSION: Mild volume loss, otherwise unremarkable. Interpreted By: Lukasz Sevilla MD Preliminary Report By: Lukasz Sevilla MD Electronically Signed By: Lukasz Sevilla MD Dictated Date: 10/11/2020 3:12:07 PM Prelim Date: 10/11/2020 3:12:07 PM Sign Date: 10/11/2020 3:13:16 PM Ordering Provider:Max Chao [facility] ([place]) CT SPINE CERVICAL W/O CONTRA STon 10-11-2020 CT SPINE CERVICAL W/O CONTRAST ORIGINAL CT SPINE CERVICAL W/O CONTRAST, 10/11/2020 3:13 PM INDICATION: neck pain COMPARISON: November 2016 Technique: Cervical spine CT with sagittal and coronal reconstructions. This exam was performed according to our departmental dose optimization program, and includes the following measures where applicable: automated exposure control, adjustment of the mAs and/or kVp according to patient size and/or exam, and an iterative reconstruction algorithm. FINDINGS: There are no acute fractures or dislocations. Alignment is within normal limits for soft tissues are unremarkable in appearance. IMPRESSION: No acute fracture. Interpreted By: Lukasz Sevilla MD Preliminary Report By: Lukasz Sevilla MD Electronically Signed By: Lukasz Sevilla MD Dictated Date: 10/11/2020 3:13:28 PM Prelim Date: 10/11/2020 3:13:28 PM Sign Date: 10/11/2020 3:18:24 PM Ordering Provider:Max [facility] ([place]) Vital Signs Date Time Vital Sign Value Performing Clinician Noemi fox 09-17-2024 14:51-0400 Body height 175.[address] Livia Keyes MD Work Phone: [facility] 09-17-2024 14:51-0400 Body mass index (BMI) [Ratio] 29.3 kg/m2 Dr. Livia Keyes MD Work Phone: [facility] 09-17-2024 14:51-0400 Body temperature 98 [degF] Dr. Livia Keyes MD Work Phone: [facility] 09-17-2024 14:51-0400 Body weight 90.[address] Livia Keyes MD Work Phone: [facility] 09-17-2024 14:51-0400 Diastolic blood pressure 66 mm[Hg] Dr. Livia Keyes MD Work Phone: [facility] 09-17-2024 14:51-0400 Heart rate 74 /min Dr. Livia Keyes MD Work Phone: [facility] 09-17-2024 14:51-0400 Respiratory rate 18 /min Dr. Livia Keyes MD Work Phone: [facility] 09-17-2024 14:51-0400 SaO2% (BldA) [Mass fraction] 96 % Dr. Livia Keyes MD Work Phone: [facility] 09-17-2024 14:51-0400 Systolic blood pressure 135 mm[Hg] Dr. Livia Keyse MD Work Phone: [facility] Encounters Encounter Date Encounter Type Care Provider Facility Start: 10-08-2024 ambulatory Blanca Valentin Facility:[facility] Start: 09-17-2024 End: 09-17-2024 Patient encounter procedure Blanca Valentin [facility] Work Phone: Start: 09-17-2024 End: 09-17-[address] Livia Keyes MD Work Phone: [facility] Work Phone: Start: 08-13-2024 End: 08-13-2024 ambulatory LIVIA MONTESINOS [facility] Start: 08-05-2024 ambulatory LIVIA MONTESINOS [facility] Start: 08-04-2024 End: 08-04-2024 ambulatory WILFRED ALONSO [facility] Start: 04-29-2024 End: 04-29-2024 ambulatory LIVIA MONTESINOS [facility] Start: 03-20-2024 End: 03-20-2024 ambulatory LIVIA MONTESINOS [facility] Start: 01-07-2024 ambulatory LIVIA MONTESINOS [facility] Start: 11-20-2023 End: 11-20-2023 ambulatory Livia Keyes Facility:[facility] Start: 08-02-2021 End: 08-02-2021 Patient encounter procedure [facility] Start: 04-28-2021 End: 04-28-[address] ASHANTI IBRAHIM MD [facility] Procedures Date Procedure Procedure Detail Performing Clinician Start: 08-04-2024 PSA screening WILFRED ALONSO Comment on above: Performed By: #### 2 [id number] #### [facility],[address] [place] [address] Start: 11-12-2020 Posterior cervical s pine approach (qualifier value) DR ASHANTI IBRAHIM MD Comment on above: PCDF C3-4 Start: 04-16-2018 Rotator cuff arthrop athy of right shoulder DR ASHANTI IBRAHIM MD Start: 04-16-[address] ASHANTI FLOWER MD Comment on above: plates and screws pl aced lumbar region Start: 04-16-2002 Rotator cuff arthrop athy of left shoulder DR ASHANTI IBRAHIM MD Start: 04-16-1995 Lateral epicondyliti s of right humerus DR ASHANTI IBRAHIM MD Start: 04-16-1993 Chain saw, device (physical object) DR ASHANTI IBRAHIM MD Comment on above: left arm accident se jamila radial artery and nerves Start: 04-16-[address] ASHANTI FLOWER MD Start: 04-16-[address] ASHANTI FLOWER MD Start: 04-16-[address] ASHANTI FLOWER MD Comment on above: L3-L4 Abdominal aortic ane urysm (disorder) DR ASHANTI IBRAHIM MD Comment on above: 2015 Plan of Treatment Date Care Activity Detail Author CT Abdomen and Pelvis [place] [facility] Payers Date Payer Category Payer Medicare [id number] 2023 Self-pay [id number] 2022 Medicare [id number] 1950 Unknown [id number] 2.16.8 [id number] 1950 Unknown [id number] 2.16.8 [id number] 1950 Unknown [id number] 2.16.8 [id number] 1950 Unknown [id number] 2.16.8 [id number] 1950 Unknown [id number] 2.16.8 [id number] 1950 Unknown [id number] 2.16.8 [id number] 1950 Unknown [id number] 2.16.8 [id number] Unknown SELF PAY INSURANCE [id number] Unknown [id number] 2.16.8 [id number] Unknown [id number] 2.16.8 [id number] Unknown [id number] 2.16.8 [id number] Social History Date Type Detail Facility Start: 11-03-2020 End: 09-17-2024 Ex-smoker (finding) [facility] Comment on above: QUIT SMOKING 1987 / SNUFF 1/3 OF A CAN A DAY SINCE 1981 Sex Assigned At [facility] Start: 1950 Sex Assigned At Male [facility] Medical Equipment Procedure Code Equipment Code Equipment Origin al Text Equipment Identifier Dates FDA Start: 11-12-2020 FDA Start: 11-12-2020 FDA Start: 11-12-2020 FDA Start: 11-12-2020 FDA Start: 11-12-2020 FDA Start: 11-12-2020 FDA Start: 11-12-2020 FDA Start: 11-12-2020 Evaluation + Plan note Note Date & Type Note Facility Evaluation + Plan note No data available for this section [facility] Evaluation note Note Date & Type Note Facility Evaluation note No assessment information availa [facility] Work Phone: Evaluation note Note Date & Type Note Facility Evaluation note Diagnosis Onset Date Resolution Carotid artery disease acute Ju 2024 2:23pm Status post endovascular aneurysm repair (EVAR) acute September 17, 2024 2 :23pm [facility] Work Phone: Hospital Discharge instructions Note Date & Type Note Facility Hospital Discharge instructions No data available for this section [facility] Reason for referral (narrative) Note Date & Type Note Facility Reason for referral (narrative) No reason for referral information available [facility] [place] [facility] Work Phone: Summary Purpose Family History No Family History Records Found Relationship Condition Age at Onset Recorded Date/T judith Not Specified Kidney disorder Unknown brother Myocardial infarction Unknown Coronary artery disease Unknown Cardiac disease Unknown Hypertension Unknown father Myocardial infarction Unknown mother Coronary artery disease Unknown Advance Directives No Advanced Directives Records FoundNo Advanced Directives Records FoundNo Advanced Directives Records FoundNo Advanced Directives Records Found Chief Complaint and Reason for Visit Chief Complaint Admit Date AAA September 17, 2024 2:23p m Reason for Visit Admit Date Carotid artery disease September 17, 2024 2: 23pm Status post endovascular aneurysm repair (EVAR) September 17, 2024 2:23pm Additional Source Comments (unrecognized sect ion and content) No Status Records FoundNo Status Records FoundNo Status Records FoundNo Status Records Found INFORMATION SOURCE (unrecogn ized section and content) DATE CREATED AUTHOR 01/24/2021 [facility] DATE CREATED AUTHOR AUTHOR'S ORGANIZ ATION 04/29/2021 [facility] ([place]) DATE CREATED AUTHOR AUTHOR'S ORGANIZ ATION 08/14/2024 [facility] DATE CREATED AUTHOR AUTHOR'S ORGANIZ ATION 09/28/2024 [facility] Goals (unrecognized section and content) Goals may be documented in a n alternate section Care Teams (unrecognized sec tion and content) Team Status: Active Member Role Status Dates Dr. Livia Keyes MD Family Provider Active Dr. Livia Keyes MD Primary Care Provider Active Team Status: Inactive Member Role Status Dates Dr. Livia Keyes MD Primary Care Provider Active Start: September 17, 2024 End: September 17, 2024 Dr. Livia Keyes MD Referring Provider Active Start: September 17, 2024 End: September 17, 2024 KELLY Houston Attending Provider Active Star t: September 17, 2024 End: September 17, 2024 FOR RECORDS PERTAINING TO PATIENTS WHO ARE OR HAVE BEEN ENROLLED IN A CHEMICAL DEPENDENCY/SUBSTANCEABUSE PROGRAM, SOME INFORMATION MAY BE OMITTED. This clinical summary was aggregated from multiple sources. Caution should be exercised in using it in the provision of clinical care. This summary normalizes information from multiple sources, and as a consequence, information in this document may materially change the coding, format and clinical context of patient data. In addition, data may be omitted in some cases. CLINICAL DECISIONS SHOULD BE BASED ON THE PRIMARY CLINICAL RECORDS. [employer] provides no warranty or guarantee of the accuracy or completeness of information in this document.
--- NOTE | 2024-10-08 06:02 | CT_ITS ---
PROCEDURE: CTA ABD/PELVIS W/WO CONTRAST 10/08/2024 REASON FOR EXAM: AAA S/P EVAR No acute abnormality at this time. TECHNIQUE: CTA ABD/PELVIS W/WO CONTRAST Multiplanar Sagittal and Coronal images were obtained. CONTRAST: Isovue 3 7 VOLUME: 100 mL One or more dose reduction techniques were used (e.g., Automated exposure control, adjustment of the mA and/or kV according to patient size, use of iterative reconstruction technique). RADIATION DOSE SUMMARY: CTDlvol: 16 mGy DLP: 2612.66 mGycm COMPARISON: None FINDINGS: Aorta: The patient is status post endoluminal stent grafting of the [place] abdominal aortic aneurysm. There is no evidence of endoluminal leak. The distal limbs of the endovascular graft are seen in the proximal portions of the common iliac arteries bilaterally. Iliac Arteries: Ectasia of the iliac arteries bilaterally. Celiac: Mild atherosclerotic plaque formation at the origin of the celiac artery and just proximal to the bifurcation of the splenic and right hepatic arteries. SMA: No significant plaque formation. JERMAN : Not visualized. Right Renal: Atherosclerotic plaque formation at the origin of the right renal artery. Left Renal: Unremarkable Extravascular Findings: Coronary artery calcification. Mild bilateral renal cortical atrophy. Sigmoid diverticulosis. Findings suggestive of tiny layering gallstones along the dependent portion of the gallbladder lumen. Prior fusion in the lower lumbar spine. CT/CTA Abd/Pelvis W/WO Contrast IMPRESSION: Status post endoluminal stent grafting of the abdominal aortic aneurysm. No ab normality is seen. Reading Location: [facility]
== END | disposition home or self-care (01) ==
PROVIDERS: PCP Internal Medicine; Referring Provider Physician Assistant; Visit Provider Physician Assistant
DX: Z09 Encounter for follow-up examination after completed treatment for conditions other than malignant neoplasm (principal); Z98.890 Other specified postprocedural states; Z86.79 Personal history of other diseases of the circulatory system
CPT/HCPCS: 74174; Q9967

== ENCOUNTER → 2025-03-20 | Outpatient (CLI) | payer MEDICARE, SELFPAY ==
[2025-03-20 17:57] LABS: Hematocrit 35.1 % (40-54); Hemoglobin 10.8 g/dL (13.0-16.5); Immature Granulocytes Count 0.030 X10^3/uL (0.0-0.0); Mean Corp Hgb Conc 30.8 g/dL (32-36); Mean Corpuscular Volume 104.2 fL (80-94); Mean Platelet Vol. 10.8 fl (6.2-12.0); NRBC Flagged by Analyzer 0 % (0-5); Platelet Count 268 K/mm3 (150-450); RBC Distribution Width CV 13.0 % (11.6-14.6); RBC Distribution Width SD 49.3 fl (35.1-43.9); Red Blood Count 3.37 M/mm3 (4.6-6.2); White Blood Count 7.7 K/mm3 (4.4-11.0)
[2025-03-20 18:14] LABS: AST(SGOT) 20 U/L (<=37); Alanine Aminotransfer ALT/SGPT 17 U/L (<=46); Albumin, Serum 3.8 g/dL (3.4-4.8); Alkaline Phosphatase 64 U/L (40-129); Anion Gap 10 (5-15); BUN 18 mg/dL (4-19); BUN/Creat Ratio 11.8 RATIO (10-20); Calcium,Total 9.3 mg/dL (7.6-11.0); Carbon Dioxide 26.9 mmol/L (21.0-32.0); Chloride 106 mmol/L (98-108); Cholesterol 185 mg/dL (<=200); Globulin 3.5 g/dL (2.2-4.2); Glucose 106 mg/dL (70-99); Low Density Lipoprotein Calc. 108 mg/dL; Potassium 4.2 mmol/L (3.3-5.1); Triglycerides 120 mg/dL; Very Low Density Lipoprotein 24 mg/dL (5-40); Vitamin D,25 Hydroxy 28.8 ng/mL (30-100); cholesterol:hdl ratio screen 3.35
[2025-03-20 18:17] LABS: FOLATES,SERUM (FOLIC ACID) 12.00 ng/mL (4.60-34.80)
[2025-03-20 19:44] LABS: PTHIN 57 pg/mL (11-61)
== END | disposition home or self-care (01) ==
LOC: MTLAB 15:02
PROVIDERS: PCP Internal Medicine; Referring Provider Internal Medicine; Visit Provider Internal Medicine
DX: D52.9 Folate deficiency anemia, unspecified (principal); E21.1 Secondary hyperparathyroidism, not elsewhere classified; E55.9 Vitamin D deficiency, unspecified; E78.5 Hyperlipidemia, unspecified
CPT/HCPCS: 36415; 80053; 80061; 82306; 82746; 83970; 84443; 85025